=== PATIENT | male | born 1955 | race Caucasian/White ===

== ENCOUNTER 2019-04-17 13:14 | Observation (INO) | payer OTHER ==
[2019-04-17 14:15] LABS: Basophils # (A) 0.1 k/uL (0-0.2); Basophils % (A) 1 %; Eosinophils # (A) 0.2 k/uL (0-0.7); Eosinophils % (A) 3 %; HCT 47.4 % (39.0-53.0); HGB 16.2 gm/dL (13.0-17.5); Lymphocytes # (A) 1.1 k/uL (1.0-4.8); Lymphocytes % (A) 15 %; MCH 31.5 pg (25.0-35.0); MCHC 34.2 g/dL (31.0-37.0); Mean Platelet Volume 7.4; Monocytes # (A) 0.4 k/uL (0-1.0); Monocytes % (A) 6 %; Neutrophils # (A) 5.5 k/uL (1.3-7.7); Neutrophils % (A) 75 %; Platelet Count 248 k/uL (150-450); RBC 5.16 m/uL (4.30-5.90); RDW 13.7 % (11.5-15.5); WBC 7.4 k/uL (3.8-10.6)
[2019-04-17] MEDS: ASPIRIN 81 MG PO STA ×2 (14:18→14:19)
[2019-04-17 14:26] LABS: ALT 25 U/L (21-72); AST 36 U/L (17-59); Albumin 4.3 g/dL (3.5-5.0); Alkaline Phosphatase 51 U/L (38-126); Anion Gap 9 mmol/L; Blood Urea Nitrogen 10 mg/dL (9-20); Calcium 9.4 mg/dL (8.4-10.2); Carbon Dioxide 25 mmol/L (22-30); Chloride 104 mmol/L (98-107); Glucose 95 mg/dL (74-99); Sodium 138 mmol/L (137-145); Total Protein 7.1 g/dL (6.3-8.2)
[2019-04-17 14:32] LABS: INR 0.9 (<1.2); Partial Thromboplastin Time 27.1 sec (22.0-30.0); Prothrombin Time 10.2 sec (9.0-12.0)
[2019-04-17 14:34] LABS: Magnesium 1.9 mg/dL (1.6-2.3); Potassium 4.6 mmol/L (3.5-5.1)
--- NOTE | 2019-04-17 14:40 | ED ---
General Adult HPI - General Chief complaint: Chest Pain Stated complaint: chest pain Time Seen by Provider: 04/17/19 13:20 Source: patient, RN notes reviewed Mode of arrival: wheelchair - History of Present Illness Initial comments: This is a 63-year-old male who presents emergency Department complaining that he started having some chest pressure radiated to his neck felt his heart rate racing so he came to the emergency department. Patient did not note any sweating or shortness of breath but did feel like he was getting a significant headache as well. Patient came to the ER and was worked up to the monitor his heart rate was 140 in triage 120 when he got back to the room and then he converted to a normal sinus rhythm in the 80s. Patient currently denies any symptoms whatsoever. Patient denies any symptoms previously. - Related Data Home Medications Medication Instructions Recorded Confirmed Amoxic-Pot Clav 875-125Mg 1 tab PO Q12HR 04/17/19 04/17/19 [Augmentin 875-125] Aspirin EC [Ecotrin Low Dose] 81 mg PO DAILY 04/17/19 04/17/19 Escitalopram [Lexapro] 10 mg PO DAILY 04/17/19 04/17/19 Escitalopram [Lexapro] 20 mg PO DAILY 04/17/19 04/17/19 Multivitamins, Thera [Multivitamin 1 tab PO DAILY 04/17/19 04/17/19 (formulary)] clonazePAM [KlonoPIN] 1 mg PO QID PRN 04/17/19 04/17/19 Allergies Allergy/AdvReac Type Severity Reaction Status Date / Time haloperidol [From Haldol] Allergy Swelling Verified 04/17/19 14:10 Review of Systems ROS Statement: Those systems with pertinent positive or pertinent negative responses have been documented in the HPI. ROS Other: All systems not noted in ROS Statement are negative. Past Medical History Past Medical History: No Reported History History of Any Multi-Drug Resistant Organisms: None Reported Past Surgical History: Orthopedic Surgery Past Psychological History: Anxiety Smoking Status: Former smoker Past Alcohol Use History: None Reported Past Drug Use History: None Reported General Exam - General Exam Comments Initial Comments: GENERAL: Patient is well-developed and well-nourished. Patient is nontoxic and well- hydrated and is in mild distress. ENT: Neck is soft and supple. No significant lymphadenopathy is noted. Oropharynx is clear. Moist mucous membranes. Neck has full range of motion without eliciting any pain. EYES: The sclera were anicteric and conjunctiva were pink and moist. Extraocular movements were intact and pupils were equal round and reactive to light. Eyelids were unremarkable. PULMONARY: Unlabored respirations. Good breath sounds bilaterally. No audible rales rhonchi or wheezing was noted. CARDIOVASCULAR: There is a regular rate and rhythm without any murmurs gallops or rubs. ABDOMEN: Soft and nontender with normal bowel sounds. SKIN: Skin is clear with no lesions or rashes and otherwise unremarkable. NEUROLOGIC: Patient is alert and oriented x3. Cranial nerves II through XII are grossly intact. Motor and sensory are also intact. Normal speech, volume and content. Symmetrical smile. MUSCULOSKELETAL: Normal extremities with adequate strength and full range of motion. No lower extremity swelling or edema. No calf tenderness. LYMPHATICS: No significant lymphadenopathy is noted PSYCHIATRIC: Normal psychiatric evaluation. Course Vital Signs 04/17/19 13:16 Temperature 98.2 F Pulse Rate 147 H Respiratory 18 Rate Blood Pressure 98/71 O2 Sat by Pulse 99 Oximetry Medical Decision Making - Medical Decision Making EKG shows normal sinus rhythm at 85 bpm SD interval is 195 QRSs 84 QT interval 362 QTC is 4:30. Patient's EKG shows no ST segment elevation or depression or T wave abnormalities are noted. Patient was in the emergency department for a few hours and experienced no increase in heart rate and was unable to determine what rhythm he was in prior to slowing down to the 80s. Patient has had no chest pains since he slowed down. - Lab Data Result diagrams: 04/17/19 13:59 04/17/19 13:59 Lab Results 04/17/19 04/17/19 04/17/19 Range/Units 13:59 13:59 13:59 WBC 7.4 (3.8-10.6) k/uL RBC 5.16 (4.30-5.90) m/uL Hgb 16.2 (13.0-17.5) gm/dL Hct 47.4 (39.0-53.0) % MCV 92.0 (80.0-100.0) fL MCH 31.5 (25.0-35.0) pg MCHC 34.2 (31.0-37.0) g/dL RDW 13.7 (11.5-15.5) % Plt Count 248 (150-450) k/uL Neutrophils % 75 % Lymphocytes % 15 % Monocytes % 6 % Eosinophils % 3 % Basophils % 1 % Neutrophils # 5.5 (1.3-7.7) k/uL Lymphocytes # 1.1 (1.0-4.8) k/uL Monocytes # 0.4 (0-1.0) k/uL Eosinophils # 0.2 (0-0.7) k/uL Basophils # 0.1 (0-0.2) k/uL PT 10.2 (9.0-12.0) sec INR 0.9 (<1.2) APTT 27.1 (22.0-30.0) sec Sodium 138 (137-145) mmol/L Potassium 4.6 (3.5-5.1) mmol/L Chloride 104 (98-107) mmol/L Carbon Dioxide 25 (22-30) mmol/L Anion Gap 9 mmol/L BUN 10 (9-20) mg/dL Creatinine 0.78 (0.66-1.25) mg/dL Est GFR (CKD-EPI)AfAm >90 (>60 ml/min/1.73 sqM) Est GFR (CKD-EPI)NonAf >90 (>60 ml/min/1.73 sqM) Glucose 95 (74-99) mg/dL Calcium 9.4 (8.4-10.2) mg/dL Magnesium 1.9 (1.6-2.3) mg/dL Total Bilirubin 1.0 (0.2-1.3) mg/dL AST 36 (17-59) U/L ALT 25 (21-72) U/L Alkaline Phosphatase 51 (38-126) U/L Troponin I (0.000-0.034) ng/mL Total Protein 7.1 (6.3-8.2) g/dL Albumin 4.3 (3.5-5.0) g/dL 04/17/19 Range/Units 13:59 WBC (3.8-10.6) k/uL RBC (4.30-5.90) m/uL Hgb (13.0-17.5) gm/dL Hct (39.0-53.0) % MCV (80.0-100.0) fL MCH (25.0-35.0) pg MCHC (31.0-37.0) g/dL RDW (11.5-15.5) % Plt Count (150-450) k/uL Neutrophils % % Lymphocytes % % Monocytes % % Eosinophils % % Basophils % % Neutrophils # (1.3-7.7) k/uL Lymphocytes # (1.0-4.8) k/uL Monocytes # (0-1.0) k/uL Eosinophils # (0-0.7) k/uL Basophils # (0-0.2) k/uL PT (9.0-12.0) sec INR (<1.2) APTT (22.0-30.0) sec Sodium (137-145) mmol/L Potassium (3.5-5.1) mmol/L Chloride (98-107) mmol/L Carbon Dioxide (22-30) mmol/L Anion Gap mmol/L BUN (9-20) mg/dL Creatinine (0.66-1.25) mg/dL Est GFR (CKD-EPI)AfAm (>60 ml/min/1.73 sqM) Est GFR (CKD-EPI)NonAf (>60 ml/min/1.73 sqM) Glucose (74-99) mg/dL Calcium (8.4-10.2) mg/dL Magnesium (1.6-2.3) mg/dL Total Bilirubin (0.2-1.3) mg/dL AST (17-59) U/L ALT (21-72) U/L Alkaline Phosphatase (38-126) U/L Troponin I <0.012 (0.000-0.034) ng/mL Total Protein (6.3-8.2) g/dL Albumin (3.5-5.0) g/dL Disposition Clinical Impression: Palpitations, Chest pain Disposition: ADMITTED IP TO THIS [facility] Referrals: Everett Betancur DO [Primary Care Provider] - 1-2 days Time of Disposition: 15:21
--- NOTE | 2019-04-17 14:41 | XR ---
EXAMINATION TYPE: XR chest 2V DATE OF EXAM: 04/17/2019 COMPARISON: NONE HISTORY: Chest pain TECHNIQUE: Frontal and lateral views of the chest are obtained. FINDINGS: There is no focal air space opacity, pleural effusion, or pneumothorax seen. The cardiac silhouette size is mildly enlarged. Minimal lingular atelectasis is seen that is linear. The osseou s structures are intact. IMPRESSION: Mildly enlarged cardiac mediastinal silhouette and minimal lingular atelectasis otherwis e no acute cardiopulmonary process.
[2019-04-17] MEDS ORDERED: NITROGLYCERIN SL TABS 0.4 MG TAB SUBLINGUAL PRN (15:27)
[2019-04-17] MEDS: NITROGLYCERIN OINT 1 INCH/GM PACKET TOPICAL SCH (16:40)
[2019-04-17] MEDS: AMOXIC-POT CLAV 875-125MG 1 EACH TAB PO SCH (20:02)
[2019-04-17] MEDS: clonazePAM 1 MG TAB PO PRN (20:02)
[2019-04-17] MEDS ORDERED: LORATADINE 10 MG TAB PO SCH (21:00)
[2019-04-18] MEDS: NITROGLYCERIN OINT 1 INCH/GM PACKET TOPICAL SCH ×3 (01:35→11:05)
[2019-04-18] MEDS: clonazePAM 1 MG TAB PO PRN ×2 (02:55→09:23)
[2019-04-18 03:48] LABS: Cholesterol 199 mg/dL (<200); HDL Cholesterol 36 mg/dL (40-60); LDL Cholesterol,Calculated 126 mg/dL (0-99); Triglycerides 186 mg/dL (<150)
[2019-04-18 04:04] VITALS: RESP 16
[2019-04-18 07:01] VITALS: BP 115/73; PULSE 52; TEMP 97.7
--- NOTE | 2019-04-18 07:30 | P.CRDCN ---
History of Present Illness Consult date: 04/18/19 Chief complaint: Chest pain History of present illness: This is a 63-year-old gentleman with no significant past medical history of coronary artery disease, diabetes, hypertension, dyslipidemia, presented to the emergency room complaining of chest discomfort. He was in his usual state of health where he was with his fianc yesterday outside home when he started experiencing discomfort, in the mid of the chest, as a sharp discomfort, without any radiation to the arm or neck or shoulders and without any associated symptoms of shortness of breath, sweating, dizziness, heart racing, or syncope. The discomfort lasted for about half an hour. The time he arrived emergency room was chest pain-free and he continues to be chest pain-free throughout his hospitalization. The EKG showed sinus rhythm without any significant ST or T- wave abnormalities. 3 sets of cardiac enzymes were checked and came in to be unremarkable. The chest x-ray did not show any acute abnormalities. The patient is not aware of any prior history of coronary artery disease nor diabetes or hypertension or dyslipidemia. He does not smoke or drink alcohol. And there is no family history of coronary artery disease. He does have his son was does have a pacemaker and also his father. Past Medical History Past Medical History: No Reported History History of Any Multi-Drug Resistant Organisms: None Reported Past Surgical History: Orthopedic Surgery Past Anesthesia/Blood Transfusion Reactions: No Reported Reaction Past Psychological History: Anxiety Smoking Status: Former smoker Past Alcohol Use History: None Reported Past Drug Use History: None Reported Medications and Allergies Home Medications Medication Instructions Recorded Confirmed Type Amoxic-Pot Clav 875-125Mg 1 tab PO Q12HR 04/17/19 04/17/19 History [Augmentin 875-125] Aspirin EC [Ecotrin Low Dose] 81 mg PO DAILY 04/17/19 04/17/19 History Cetirizine HCl [Zyrtec] 10 mg PO HS 04/17/19 04/17/19 History Escitalopram [Lexapro] 10 mg PO DAILY 04/17/19 04/17/19 History Escitalopram [Lexapro] 20 mg PO DAILY 04/17/19 04/17/19 History Multivitamins, Thera [Multivitamin 1 tab PO DAILY 04/17/19 04/17/19 History (formulary)] clonazePAM [KlonoPIN] 1 mg PO QID PRN 04/17/19 04/17/19 History Allergies Allergy/AdvReac Type Severity Reaction Status Date / Time haloperidol [From Haldol] Allergy Swelling Verified 04/17/19 14:10 Physical Exam Vitals: Vital Signs Temp Pulse Pulse Resp BP BP Pulse Ox 04/18/19 06:59 97.7 F 52 L 16 115/73 97 04/18/19 04:00 57 L 16 04/18/19 03:57 97.9 F 55 L 15 118/72 97 04/17/19 23:21 98.5 F 60 15 121/70 97 04/17/19 19:27 98.0 F 70 15 123/77 98 04/17/19 16:00 18 04/17/19 15:53 98.1 F 76 18 115/75 97 04/17/19 15:00 98.2 F 87 18 122/74 99 04/17/19 13:16 98.2 F 147 H 18 98/71 99 Intake and Output 04/17/19 04/18/19 04/18/19 22:59 06:59 14:59 Intake Total 0 Balance 0 Intake: Oral 0 Other: Voiding Method Toilet Toilet # Voids 1 - Constitutional General appearance: no acute distress - Respiratory Respiratory: bilateral: CTA - Cardiovascular Rhythm: regular Heart sounds: normal: S1, S2 Results 04/17/19 13:59 04/17/19 13:59 Cardiac Enzymes 04/17/19 04/17/19 04/17/19 Range/Units 13:59 13:59 19:53 AST 36 (17-59) U/L Troponin I <0.012 0.027 (0.000-0.034) ng/mL 04/18/19 Range/Units 02:45 AST (17-59) U/L Troponin I 0.015 (0.000-0.034) ng/mL Coagulation 04/17/19 Range/Units 13:59 PT 10.2 (9.0-12.0) sec APTT 27.1 (22.0-30.0) sec Lipids 04/18/19 Range/Units 02:45 Triglycerides 186 H (<150) mg/dL Cholesterol 199 (<200) mg/dL HDL Cholesterol 36 L (40-60) mg/dL CBC 04/17/19 Range/Units 13:59 WBC 7.4 (3.8-10.6) k/uL RBC 5.16 (4.30-5.90) m/uL Hgb 16.2 (13.0-17.5) gm/dL Hct 47.4 (39.0-53.0) % Plt Count 248 (150-450) k/uL Comprehensive Metabolic Panel 04/17/19 Range/Units 13:59 Sodium 138 (137-145) mmol/L Potassium 4.6 (3.5-5.1) mmol/L Chloride 104 (98-107) mmol/L Carbon Dioxide 25 (22-30) mmol/L BUN 10 (9-20) mg/dL Creatinine 0.78 (0.66-1.25) mg/dL Glucose 95 (74-99) mg/dL Calcium 9.4 (8.4-10.2) mg/dL AST 36 (17-59) U/L ALT 25 (21-72) U/L Alkaline Phosphatase 51 (38-126) U/L Total Protein 7.1 (6.3-8.2) g/dL Albumin 4.3 (3.5-5.0) g/dL Current Medications Generic Name Dose Route Start Last Admin Trade Name Freq PRN Reason Stop Dose Admin Amoxicillin/Clavulanate Potassium 1 each 04/17/19 21:00 04/17/19 20:02 Augmentin 875-125 PO 1 each Q12HR KAYLA Administration Aspirin 325 mg 04/18/19 09:00 Aspirin PO DAILY [facility] Clonazepam 1 mg 04/17/19 18:09 04/18/19 02:55 Klonopin PO 1 mg QID PRN Administration Anxiety Escitalopram Oxalate 10 mg 04/18/19 09:00 Lexapro PO DAILY KAYLA Escitalopram Oxalate 20 mg 04/18/19 09:00 Lexapro PO DAILY KAYLA Loratadine 10 mg 04/17/19 21:00 04/17/19 20:02 Claritin PO 10 mg HS KAYLA Administration Multivitamins 1 each 04/18/19 09:00 Theragran PO DAILY [facility] Nitroglycerin 1 inch 04/17/19 18:00 04/18/19 06:26 Nitro-Bid Oint TOPICAL Not Given Q6HR [facility] Nitroglycerin 0.4 mg 04/17/19 15:27 Nitrostat SUBLINGUAL Q5M PRN Chest Pain Intake and Output 04/17/19 04/18/19 04/18/19 22:59 06:59 14:59 Intake Total 0 Balance 0 Intake: Oral 0 Other: Voiding Method Toilet Toilet # Voids 1 04/17/19 13:59 04/17/19 13:59 Assessment and Plan Assessment: Assessment #1 when episode of atypical chest discomfort. Currently the patient is chest pain-free Plan #1 acute coronary event was ruled out #2 the patient continues to be chest pain-free #3 I did discuss with the patient the need for stress test and I discussed with him the option between doing a stress test as an inpatient or outpatient. I am getting the patient up and around and if he is chest pain-free he might be able to be discharged home and I will follow-up with the patient as an outpatient. Thank you for allowing us participate in his care
[2019-04-18] MEDS ORDERED: ASPIRIN 325 MG TAB PO SCH (09:00)
[2019-04-18] MEDS ORDERED: ESCITALOPRAM 20 MG TAB PO SCH (09:00)
[2019-04-18] MEDS ORDERED: ESCITALOPRAM 10 MG TAB PO SCH (09:00)
[2019-04-18] MEDS ORDERED: NON-FORMULARY DRUG (Aspirin Ec 81 MG) PO SCH (09:00)
[2019-04-18] MEDS ORDERED: MULTIVITAMINS, THERA 1 EACH TAB PO SCH (09:00)
[2019-04-18] MEDS: AMOXIC-POT CLAV 875-125MG 1 EACH TAB PO SCH (09:19)
--- NOTE | 2019-04-18 09:49 | P.HPIM ---
History of Present Illness H&P Date: 04/18/19 Chief Complaint: Chest Pain This is a 63-year-old gentleman admitted to the ER with midsternal sharp chest pain, palpitations, no radiation, no shortness of breath, no nausea or vomiting, no dizziness, no lightheadedness or focal deficits, no syncope, lasting for nearly an hour in a patient with no prior significant cardiac history, diabetes mellitus, hyperlipidemia. Heart rate on admission 140, slow down to the 80s. Rhythm on admission, unknown. EKG reported normal sinus rhythm. Troponins negative 3. Electrolytes within normal limits. Triglycerides 186, cholesterol 199, LDL 126, HDL 36. Chest x-ray nonacute. Received aspirin .VSS.Chest pain/palpitations has subsided. Admitted to observation with cardiology consulted. Review of Systems ROS Statement: Those systems with pertinent positive or pertinent negative responses have been documented in the HPI. ROS Other: All systems not noted in ROS Statement are negative. Past Medical History Past Medical History: No Reported History History of Any Multi-Drug Resistant Organisms: None Reported Past Surgical History: Orthopedic Surgery Past Anesthesia/Blood Transfusion Reactions: No Reported Reaction Past Psychological History: Anxiety Smoking Status: Former smoker Past Alcohol Use History: None Reported Past Drug Use History: None Reported Medications and Allergies Home Medications Medication Instructions Recorded Confirmed Type Amoxic-Pot Clav 875-125Mg 1 tab PO Q12HR 04/17/19 04/17/19 History [Augmentin 875-125] Aspirin EC [Ecotrin Low Dose] 81 mg PO DAILY 04/17/19 04/17/19 History Cetirizine HCl [Zyrtec] 10 mg PO HS 04/17/19 04/17/19 History Escitalopram [Lexapro] 10 mg PO DAILY 04/17/19 04/17/19 History Escitalopram [Lexapro] 20 mg PO DAILY 04/17/19 04/17/19 History Multivitamins, Thera [Multivitamin 1 tab PO DAILY 04/17/19 04/17/19 History (formulary)] clonazePAM [KlonoPIN] 1 mg PO QID PRN 04/17/19 04/17/19 History Allergies Allergy/AdvReac Type Severity Reaction Status Date / Time haloperidol [From Haldol] Allergy Swelling Verified 04/17/19 14:10 Physical Exam Vitals: Vital Signs Temp Pulse Pulse Resp BP BP Pulse Ox 04/18/19 06:59 97.7 F 52 L 16 115/73 97 04/18/19 04:00 57 L 16 04/18/19 03:57 97.9 F 55 L 15 118/72 97 04/17/19 23:21 98.5 F 60 15 121/70 97 04/17/19 19:27 98.0 F 70 15 123/77 98 04/17/19 16:00 18 04/17/19 15:53 98.1 F 76 18 115/75 97 04/17/19 15:00 98.2 F 87 18 122/74 99 04/17/19 13:16 98.2 F 147 H 18 98/71 99 Intake and Output 04/17/19 04/18/19 04/18/19 22:59 06:59 14:59 Intake Total 0 Balance 0 Intake: Oral 0 Other: Voiding Method Toilet Toilet # Voids 1 PHYSICAL EXAM: VITAL SIGNS: As above GENERAL: Sitting up in bed, no acute distress HEENT: Conjunctivae normal. eyes normal. NECK: No JVD. No thyroid enlargement. No LNs CARDIOVASCULAR: S1, S2 regular.. No murmur RESPIRATION: Breath sounds diminished in the bases. No rhonchi or crackles. No bronchial breathing. ABDOMEN: Soft, nontender . No guarding. no masses palpable.Bowel sounds heard. LEGS: No edema. no swelling PSYCHIATRY: Alert and oriented -3, mood and affect normal. NERVOUS SYSTEM: Cranial N 2-12 grossly normal. Moves all 4 limbs. No focal deficits. Strength and sensation grossly intact.. Skin: no lesions, no rash Joints: No active swelling. No inflammation. Lymphatic system. No LN neck axilla or groin. Results CBC & Chem 7: 04/17/19 13:59 04/17/19 13:59 Labs: Abnormal Lab Results - Last 24 Hours (Table) 04/18/19 Range/Units 02:45 Triglycerides 186 H (<150) mg/dL LDL Cholesterol, Calc 126 H (0-99) mg/dL HDL Cholesterol 36 L (40-60) mg/dL Thrombosis Risk Factor Assmnt - Choose All That Apply Any of the Below Risk Factors Present?: No Each Risk Factor Represents 2 Points: Age 61-74 years Thrombosis Risk Factor Assessment Total Risk Factor Score: 2 Thrombosis Risk Factor Assessment Level: Low Risk Assessment and Plan Assessment: -CP, palpitations -Anxiety -Former nicotine dependence -Hyperlipidemia Plan: Continue on current medication regime ,monitoring and symptomatic treatment. Home meds have been reviewed and resumed. Cardiology consulted, currently discussing stress test. Patient instructed to ambulate in hallway. Further recommendations to follow. The impression and plan of care has been dictated as directed. : I performed a history and examination of this patient, discussed the same with the dictator. I agree with the dictator's note ,documented as a scribe. Any additional findings or plans will be noted. Time taken: 35 minutes
--- NOTE | 2019-04-18 10:02 | P.DS ---
Providers Date of admission: 04/17/19 15:31 Expected date of discharge: 04/18/19 Attending physician: MD Dr Pipe Valdez Consults: 04/17/19 15:28 Consult Physician Urgent Consulting Provider: [facility] Consult Reason/Comments: Chest pain, palpitations Do you want consulting provider notified?: Yes Primary care physician: Everett Betancur [facility] Course: Final Diagnoses: -Atypical CP, palpitations. Acute coronary event ruled out as per cardiology. -Anxiety -Former nicotine dependence -Hyperlipidemia Hospital course:This is a 63-year-old gentleman admitted to the ER with midsternal sharp chest pain, palpitations, no radiation, no shortness of breath, no nausea or vomiting, no dizziness, no lightheadedness or focal deficits, no syncope, lasting for nearly an hour in a patient with no prior significant cardiac history, diabetes mellitus, hyperlipidemia. Heart rate on admission 140, slow down to the 80s. Rhythm on admission, unknown. EKG reported normal sinus rhythm. Troponins negative 3. Electrolytes within normal limits. Triglycerides 186, cholesterol 199, LDL 126, HDL 36. Chest x-ray nonacute. Received aspirin .VSS.Chest pain/palpitations has subsided. Admitted to observation with cardiology consulted. Evaluated by cardiology. Patient ambulated in the hallway, multiple times, tolerating exertion well, no further chest pain, palpitations, lightheadedness dizziness or focal deficits. Cardiology recommending outpatient stress test. Patient has been cleared by cardiology for discharge. Patient is being discharged home in stable condition with guarded prognosis. EXAM: GENERAL: Alert and oriented 3, no acute distress CARDIOVASCULAR: S1, S2 regular.. No murmur RESPIRATION: Breath sounds diminished in the bases. No rhonchi or crackles. No wheezing ABDOMEN: Soft, nontender . No guarding. no masses palpable.Bowel sounds heard. NERVOUS SYSTEM: No focal deficits. The impression and plan of care has been dictated as directed. : I performed a history and examination of this patient, discussed the same with the dictator. I agree with the dictator's note ,documented as a scribe. Any additional findings or plans will be noted. Time taken: 35 minutes Patient Condition at Discharge: Stable Plan - Discharge Summary Discharge Rx Participant: No New Discharge Prescriptions: Continue clonazePAM [KlonoPIN] 1 mg PO QID PRN PRN Reason: Anxiety Multivitamins, Thera [Multivitamin (formulary)] 1 tab PO DAILY Escitalopram [Lexapro] 10 mg PO DAILY Escitalopram [Lexapro] 20 mg PO DAILY Aspirin EC [Ecotrin Low Dose] 81 mg PO DAILY Amoxic-Pot Clav 875-125Mg [Augmentin 875-125] 1 tab PO Q12HR Cetirizine HCl [Zyrtec] 10 mg PO HS Discharge Medication List Amoxic-Pot Clav 875-125Mg [Augmentin 875-125] 1 tab PO Q12HR 04/17/19 [History] Aspirin EC [Ecotrin Low Dose] 81 mg PO DAILY 04/17/19 [History] Cetirizine HCl [Zyrtec] 10 mg PO HS 04/17/19 [History] Escitalopram [Lexapro] 10 mg PO DAILY 04/17/19 [History] Escitalopram [Lexapro] 20 mg PO DAILY 04/17/19 [History] Multivitamins, Thera [Multivitamin (formulary)] 1 tab PO DAILY 04/17/19 [History] clonazePAM [KlonoPIN] 1 mg PO QID PRN 04/17/19 [History] Follow up Appointment(s)/Referral(s): Everett Betancur DO [Primary Care Provider] - 3 Days Activity/Diet/Wound Care/Special Instructions: Confirm cardiology F/U- OP stress DIet: Low cholesterol, Cardiac
== END 2019-04-18 11:40 | disposition home or self-care (01) ==
LOC: EC 13:14 → 1SOBS 15:31
PROVIDERS: ADMIT Family Medicine; ATTEND Family Medicine
DX: R07.89 Other chest pain (principal); R00.2 Palpitations; R51 Headache; F41.9 Anxiety disorder, unspecified; E78.5 Hyperlipidemia, unspecified; Z87.891 Personal history of nicotine dependence; Z79.82 Long term (current) use of aspirin; Z79.899 Other long term (current) drug therapy; Z88.8 Allergy status to other drugs, medicaments and biological substances; Z82.49 Family history of ischemic heart disease and other diseases of the circulatory system
CPT/HCPCS: 99285; 36415; 93005; 80061; 80053; 83735; 84484 ×2; 85025; 85610; 85730; 71046; G0378 ×2

== ENCOUNTER 2022-07-25 19:32 | Emergency (ER) | payer MEDICARE, OTHER ==
--- NOTE | 2022-07-25 20:59 | XR ---
EXAMINATION TYPE: XR chest 2V DATE OF EXAM: 07/25/2022 8:37 PM COMPARISON: THIS EXAM WAS READ DURING PACS DOWNTIME, NO PRIORS AVAILABLE. TECHNIQUE: XR chest 2V Frontal and lateral views of the chest. CLINICAL INDICATION:Male, 66 years old with history of dysrhythmia; FINDINGS: Lungs/Pleura: There is no evidence of pleural effusion, focal consolidation, or pneumothorax. Pulmonary vascularity: Unremarkable. Heart/mediastinum: Cardiomediastinal silhouette is unremarkable. Musculoskeletal: No acute osseous pathology. IMPRESSION: No acute cardiopulmonary disease/process.
--- NOTE | 2022-07-26 00:06 | ED ---
Arrhythmia/Palpitations HPI - General Chief Complaint: Arrhythmia/Palpitations Stated Complaint: A-fib Time Seen by Provider: 07/25/22 23:49 Source: patient, RN notes reviewed Mode of arrival: ambulatory Limitations: no limitations - History of Present Illness Initial Comments: This is a patient with a history of paroxysmal atrial fibrillation. Patient currently only taking a daily aspirin. Patient takes nothing for rate control. Patient states on Thursday he felt the atrial fibrillation "hit him. "Patient states he felt some palpitations and racing heartbeat. He states that since then he's felt a bit weak. Patient denying any chest pain but states that he has occasionally felt some funny palpitations in his chest area. Patient denied any nausea or vomiting. No diaphoresis. No current symptoms. Patient not on anticoagulation. Patient has had a mild headache and some generalized weakness, no fever or chills, no changes in vision or hearing, no sore throat or difficulty with speech, no neck pain, no chest pain or shortness of breath, no abdominal pain, no nausea or vomiting, no changes in urination or bowel movements, no numbness or tingling, no extremity pain, no skin rashes or lesions. Past medical, surgical, social, and family history reviewed. - Related Data Home Medications Medication Instructions Recorded Confirmed Aspirin EC [Ecotrin Low Dose] 81 mg PO DAILY 04/17/19 12/20/19 Cetirizine HCl [Zyrtec] 10 mg PO HS 04/17/19 12/20/19 Escitalopram [Lexapro] 10 mg PO DAILY@1100 04/17/19 12/20/19 Escitalopram [Lexapro] 20 mg PO DAILY@1100 04/17/19 12/20/19 Multivitamins, Thera [Multivitamin 1 tab PO DAILY 04/17/19 12/20/19 (formulary)] clonazePAM [KlonoPIN] 1 mg PO TID 04/17/19 12/20/19 Elderberry Fruit and Flower [Black 1 cap PO DAILY 12/19/19 12/20/19 Elderberry 575 mg Cap] Allergies Allergy/AdvReac Type Severity Reaction Status Date / Time haloperidol [From Haldol] Allergy Swelling Verified 07/25/22 20:11 Review of Systems ROS Statement: Those systems with pertinent positive or pertinent negative responses have been documented in the HPI. ROS Other: All systems not noted in ROS Statement are negative. Past Medical History Past Medical History: Atrial Fibrillation Additional Past Medical History / Comment(s): a fib rvr History of Any Multi-Drug Resistant Organisms: None Reported Past Surgical History: Orthopedic Surgery Additional Past Surgical History / Comment(s): right wrist/forearm tendon repair due to injury Past Anesthesia/Blood Transfusion Reactions: No Reported Reaction Past Psychological History: Anxiety Smoking Status: Never smoker Past Alcohol Use History: Occasional Past Drug Use History: None Reported - Past Family History Mother Additional Family Medical History / Comment(s): polio as child Father Family Medical History: Unable to Obtain Sister(s) Family Medical History: No Reported History Son(s) Family Medical History: AICD/Pacemaker Additional Family Medical History / Comment(s): WPW-pacer Daughter(s) Additional Family Medical History / Comment(s): anxiety General Exam - General Exam Comments Initial Comments: This is an obese 66-year-old male in no distress at the time of seeing him. Does not appear to be ill or toxic. Vital signs reviewed. Patient afebrile. No respiratory distress. Appears to be adequately hydrated. Capillary refill less than 2 seconds. No mottling. Limitations: no limitations General appearance: alert, in no apparent distress Head exam: Present: atraumatic, normocephalic, normal inspection Eye exam: Present: normal appearance, PERRL, EOMI. Absent: scleral icterus, conjunctival injection, periorbital swelling ENT exam: Present: normal exam, normal oropharynx, mucous membranes moist. Absent: mucous membranes dry Neck exam: Present: normal inspection, full ROM. Absent: tenderness, meningismus, lymphadenopathy Respiratory exam: Present: normal lung sounds bilaterally. Absent: respiratory distress, wheezes, rales, rhonchi, stridor, chest wall tenderness, accessory muscle use, decreased breath sounds, prolonged expiratory Cardiovascular Exam: Present: regular rate, normal rhythm, normal heart sounds. Absent: systolic murmur, diastolic murmur, rubs, gallop, clicks GI/Abdominal exam: Present: soft, normal bowel sounds. Absent: distended, tenderness, guarding, rebound, rigid Extremities exam: Present: normal inspection, full ROM, normal capillary refill. Absent: tenderness, pedal edema, joint swelling, calf tenderness Back exam: Present: normal inspection Neurological exam: Present: alert, oriented X3, CN II-XII intact, normal gait. Absent: abnormal gait, motor sensory deficit Psychiatric exam: Present: normal affect, normal mood. Absent: depressed, agita angy, anxious, flat affect, manic, homicidal ideation Skin exam: Present: warm, dry, intact, normal color. 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 Normal axis. Marched R wave in V2. No evidence of acute ST or T-wave changes. Normal intervals. When compared to the previous EKG from December 2019 there is no significant change. Medical Decision Making - Medical Decision Making She'll with a history of atrial fibrillation. Not on anticoagulation. Currently asymptomatic other than feeling some general fatigue. Patient also adds that he has had a mild cough. Patient did show sinus bradycardia here in the ER with no evidence of atrial fibrillation. Patient was hemodynamic are stable otherwise. Patient is symptomatically discharge. No distress. We did discuss all findings and detail. All questions were answered. Patient to follow-up with his personnel clerks supervisor on Thursday. I also told the patient to follow-up with his regular physician. The case was discussed in detail with ED attending physician. Presentation, findings, treatment plan discussed in detail. Patient was told to return to the ER for any signs or symptoms worsen. Told to return immediately if any other problems arise. All questions answered. Treatment plan discussed. Patient in agreement Every effort has been made to ensure accuracy of this dictation. However, due to the limitations of electronic medical records and dictation devices, errors in charting still occur. Supervising physician Dr. Orozco - Lab Data Result diagrams: 07/26/22 03:04 07/26/22 03:04 Lab Results 09/10/22 09/10/22 09/10/22 Range/Units 00:39 00:39 02:27 WBC (3.8-10.6) k/uL RBC (4.30-5.90) m/uL Hgb (13.0-17.5) gm/dL Hct (39.0-53.0) % MCV (80.0-100.0) fL MCH (25.0-35.0) pg MCHC (31.0-37.0) g/dL RDW (11.5-15.5) % Plt Count (150-450) k/uL MPV Neutrophils % % Lymphocytes % % Monocytes % % Eosinophils % % Basophils % % Neutrophils # (1.3-7.7) k/uL Lymphocytes # (1.0-4.8) k/uL Monocytes # (0-1.0) k/uL Eosinophils # (0-0.7) k/uL Basophils # (0-0.2) k/uL Sodium (137-145) mmol/L Potassium (3.5-5.1) mmol/L Chloride (98-107) mmol/L Carbon Dioxide (22-30) mmol/L Anion Gap mmol/L BUN (9-20) mg/dL Creatinine (0.66-1.25) mg/dL Est GFR (CKD-EPI)AfAm (>60 ml/min/1.73 sqM) Est GFR (CKD-EPI)NonAf (>60 ml/min/1.73 sqM) Glucose (74-99) mg/dL Calcium (8.4-10.2) mg/dL Magnesium (1.6-2.3) mg/dL Total Bilirubin (0.2-1.3) mg/dL AST (17-59) U/L ALT (4-49) U/L Alkaline Phosphatase (38-126) U/L Troponin I (0.000-0.034) ng/mL Total Protein (6.3-8.2) g/dL Albumin (3.5-5.0) g/dL TSH 0.767 (0.465-4.680) mIU/L Urine Color Yellow Urine Appearance Clear (Clear) Urine pH 5.5 (5.0-8.0) Ur Specific Schurz 1.012 (1.001-1.035) Urine Protein Negative (Negative) Urine Glucose (UA) Negative (Negative) Urine Ketones 1+ H (Negative) Urine Blood Trace H (Negative) Urine Nitrite Negative (Negative) Urine Bilirubin Negative (Negative) Urine Urobilinogen <2.0 (<2.0) mg/dL Ur Leukocyte Esterase Negative (Negative) Urine RBC 1 (0-5) /hpf Urine WBC 1 (0-5) /hpf Urine Bacteria Rare H (None) /hpf Hyaline Casts 1 (0-2) /lpf Urine Mucus Rare H (None) /hpf Coronavirus (PCR) Not Detected (Not Detectd) 07/26/22 07/26/22 07/26/22 Range/Units 03:04 03:04 03:04 WBC 8.7 (3.8-10.6) k/uL RBC 4.61 (4.30-5.90) m/uL Hgb 15.6 (13.0-17.5) gm/dL Hct 44.6 (39.0-53.0) % MCV 96.7 (80.0-100.0) fL MCH 33.8 (25.0-35.0) pg MCHC 35.0 (31.0-37.0) g/dL RDW 12.7 (11.5-15.5) % Plt Count 244 (150-450) k/uL MPV 8.4 Neutrophils % 63 % Lymphocytes % 25 % Monocytes % 6 % Eosinophils % 4 % Basophils % 1 % Neutrophils # 5.5 (1.3-7.7) k/uL Lymphocytes # 2.2 (1.0-4.8) k/uL Monocytes # 0.5 (0-1.0) k/uL Eosinophils # 0.3 (0-0.7) k/uL Basophils # 0.1 (0-0.2) k/uL Sodium 135 L (137-145) mmol/L Potassium 5.2 H (3.5-5.1) mmol/L Chloride 101 (98-107) mmol/L Carbon Dioxide 22 (22-30) mmol/L Anion Gap 12 mmol/L BUN 13 (9-20) mg/dL Creatinine 0.73 (0.66-1.25) mg/dL Est GFR (CKD-EPI)AfAm >90 (>60 ml/min/1.73 sqM) Est GFR (CKD-EPI)NonAf >90 (>60 ml/min/1.73 sqM) Glucose 112 H (74-99) mg/dL Calcium 8.9 (8.4-10.2) mg/dL Magnesium 1.9 (1.6-2.3) mg/dL Total Bilirubin 1.5 H (0.2-1.3) mg/dL AST 57 (17-59) U/L ALT 22 (4-49) U/L Alkaline Phosphatase 45 (38-126) U/L Troponin I 0.014 (0.000-0.034) ng/mL Total Protein 7.0 (6.3-8.2) g/dL Albumin 4.4 (3.5-5.0) g/dL TSH (0.465-4.680) mIU/L Urine Color Urine Appearance (Clear) Urine pH (5.0-8.0) Ur Specific [place]z (1.001-1.035) Urine Protein (Negative) Urine Glucose (UA) (Negative) Urine Ketones (Negative) Urine Blood (Negative) Urine Nitrite (Negative) Urine Bilirubin (Negative) Urine Urobilinogen (<2.0) mg/dL Ur Leukocyte Esterase (Negative) Urine RBC (0-5) /hpf Urine WBC (0-5) /hpf Urine Bacteria (None) /hpf Hyaline Casts (0-2) /lpf Urine Mucus (None) /hpf Coronavirus (PCR) (Not Detectd) - Radiology Data Radiology results: report reviewed, image reviewed Disposition Clinical Impression: Palpitations, Fatigue, History of atrial fibrillation Narrative: Possible accidental atrial fibrillation. No evidence here in the ER Disposition: HOME SELF-CARE Condition: Good Instructions (If sedation given, give patient instructions): A-fib (Atrial Fibrillation) (ED), Heart Palpitations (ED) Additional Instructions: Call Thursday to set up a follow-up appointment with your personnel clerks supervisor and her primary care physician. Continue aspirin as directed by your regular doctor. Follow-up with your regular physician as directed. Return to the ER immediately if any symptoms worsen, new symptoms arise, or any other problems develop. Is patient prescribed a controlled substance at d/c from ED?: No Referrals: Everett Betancur DO [Primary Care Provider] - 1-2 days Time of Disposition: 04:05
[2022-07-26 03:17] LABS: Basophils # (A) 0.1 k/uL (0-0.2); Basophils % (A) 1 %; Eosinophils # (A) 0.3 k/uL (0-0.7); Eosinophils % (A) 4 %; HCT 44.6 % (39.0-53.0); HGB 15.6 gm/dL (13.0-17.5); Lymphocytes # (A) 2.2 k/uL (1.0-4.8); Lymphocytes % (A) 25 %; MCH 33.8 pg (25.0-35.0); MCV 96.7 fL (80.0-100.0); Mean Platelet Volume 8.4; Monocytes # (A) 0.5 k/uL (0-1.0); Monocytes % (A) 6 %; Neutrophils # (A) 5.5 k/uL (1.3-7.7); Neutrophils % (A) 63 %; Platelet Count 244 k/uL (150-450); RBC 4.61 m/uL (4.30-5.90); RDW 12.7 % (11.5-15.5); WBC 8.7 k/uL (3.8-10.6)
[2022-07-26 03:24] LABS: Appearance,Urine Clear (Clear); Bacteria,Urine Rare /hpf; Bilirubin,Urine Negative (Negative); Blood,Urine Trace (Negative); Color,Urine Yellow; Glucose,Urine (UA) Negative (Negative); Hyaline Casts,Urine 1 /lpf (0-2); Ketones,Urine 1+ (Negative); Leukocyte Esterase,Urine Negative (Negative); Mucus,Urine Rare /hpf; Nitrite,Urine Negative (Negative); PH, Urine 5.5 (5.0-8.0); Protein,Urine Negative (Negative); RBC,Urine 1 /hpf (0-5); Specific Gravity,Urine 1.012 (1.001-1.035); Urobilinogen,Urine <2.0 mg/dL (<2.0); WBC,Urine 1 /hpf (0-5)
[2022-07-26 03:30] LABS: ALT 22 U/L (4-49); AST 57 U/L (17-59); African American GFR (CKD) >90 (>60 ml/min/1.73 sqM); Albumin 4.4 g/dL (3.5-5.0); Alkaline Phosphatase 45 U/L (38-126); Blood Urea Nitrogen 13 mg/dL (9-20); Calcium 8.9 mg/dL (8.4-10.2); Carbon Dioxide 22 mmol/L (22-30); Glucose 112 mg/dL (74-99); Magnesium 1.9 mg/dL (1.6-2.3); Non-African American GFR(CKD) >90 (>60 ml/min/1.73 sqM); Total Bilirubin 1.5 mg/dL (0.2-1.3)
[2022-07-26 03:37] LABS: Anion Gap 12 mmol/L; Chloride 101 mmol/L (98-107); Sodium 135 mmol/L (137-145)
[2022-07-26 04:00] LABS: Potassium 5.2 mmol/L (3.5-5.1)
[2022-07-26 04:16] VITALS: BP 127/63; PULSE 54; RESP 18; TEMP 96.9
== END 2022-07-26 04:19 | disposition home or self-care (01) ==
LOC: EC 19:32
DX: R00.2 Palpitations (principal); R53.83 Other fatigue; I48.91 Unspecified atrial fibrillation; Z20.822 Contact with and (suspected) exposure to COVID-19; Z79.82 Long term (current) use of aspirin; E66.9 Obesity, unspecified; Z68.33 Body mass index [BMI] 33.0-33.9, adult; Z88.8 Allergy status to other drugs, medicaments and biological substances
CPT/HCPCS: 36415; 71046; 80053; 81001; 83735; 84443; 84484; 85025; 87635; 93005; 99285

== ENCOUNTER 2022-09-30 18:37 | Inpatient (IN) | payer MEDICARE, OTHER ==
[2022-09-30] MEDS ORDERED: SODIUM CHLORIDE 0.9% 500 ML 500 ML IV STA (18:59)
[2022-09-30] MEDS ORDERED: DILTIAZEM 125 MG in SODIUM CHLORIDE 0.9% 100 ML IV SCH (19:00)
[2022-09-30] MEDS ORDERED: DILTIAZEM DRIP BOLUS FROM BAG 1 MG SOLN IV ONE (19:01)
--- NOTE | 2022-09-30 19:06 | ED ---
General Adult HPI - General Source: patient, RN notes reviewed, old records reviewed Mode of arrival: ambulatory Limitations: no limitations <Marvel Antony - Last Filed: 09/30/22 21:28> <Marvel Orozco - Last Filed: 09/30/22 23:20> - General Chief complaint: Arrhythmia/Palpitations Stated complaint: AFib Time Seen by Provider: 09/30/22 18:45 - History of Present Illness Initial comments: This a 66-year-old male who presents emergency Department complaining that he is having palpitations. Patient states had this off and on in the past but they haven't been able to figure it out. Patient states he was told they think he has atrial fibrillation but did not yet been able to catch it. 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 Patient denies any shortness of breath or difficulty breathing. Patient denies any lightheadedness or dizziness. Patient denies any back pain. Patient denies any abdominal pain patient denies nausea vomiting diarrhea. (Marvel Antony) - Related Data Home Medications Medication Instructions Recorded Confirmed Cetirizine HCl [Zyrtec] 10 mg PO DAILY 04/17/19 09/30/22 Escitalopram [Lexapro] 10 mg PO DAILY@1200 04/17/19 09/30/22 Escitalopram [Lexapro] 20 mg PO DAILY@1200 04/17/19 09/30/22 Multivitamins, Thera [Multivitamin 1 tab PO DAILY 04/17/19 09/30/22 (formulary)] clonazePAM [KlonoPIN] 1 mg PO TID 04/17/19 09/30/22 Cholecalciferol [Vitamin D3 (25 50 mcg PO DAILY 09/30/22 09/30/22 Mcg = 1000 Iu)] Magnesium 200 mg PO DAILY 09/30/22 09/30/22 Prevagen 1 cap PO DAILY 09/30/22 09/30/22 Vitamin B Complex 1 cap PO DAILY 09/30/22 09/30/22 clonazePAM [KlonoPIN] 1 mg PO DAILY PRN 09/30/22 09/30/22 Allergies Allergy/AdvReac Type Severity Reaction Status Date / Time haloperidol [From Haldol] Allergy Swelling Verified 09/30/22 20:51 rosuvastatin AdvReac Body Verified 09/30/22 20:58 Aches/ Pain/ Weakness Review of Systems ROS Other: All systems not noted in ROS Statement are negative. <Marvel Antony - Last Filed: 09/30/22 21:28> ROS Other: All systems not noted in ROS Statement are negative. <Marvel Orozco - Last Filed: 09/30/22 23:20> ROS Statement: Those systems with pertinent positive or pertinent negative responses have been documented in the HPI. Past Medical History Past Medical History: Atrial Fibrillation Additional Past Medical History / Comment(s): a fib rvr History of Any Multi-Drug Resistant Organisms: None Reported Past Surgical History: Orthopedic Surgery Additional Past Surgical History / Comment(s): right wrist/forearm tendon repair due to injury Past Anesthesia/Blood Transfusion Reactions: No Reported Reaction Past Psychological History: Anxiety Smoking Status: Never smoker Past Alcohol Use History: Occasional Past Drug Use History: None Reported - Past Family History Mother Additional Family Medical History / Comment(s): polio as child Father Family Medical History: Unable to Obtain Sister(s) Family Medical History: No Reported History Son(s) Family Medical History: AICD/Pacemaker Additional Family Medical History / Comment(s): WPW-pacer Daughter(s) Additional Family Medical History / Comment(s): anxiety <Marvel Antony - Last Filed: 09/30/22 21:28> General Exam Limitations: no limitations <Marvel Antony - Last Filed: 09/30/22 21:28> - General Exam Comments Initial Comments: GENERAL: Patient is well-developed and well-nourished. Patient is nontoxic and well- hydrated and is in mild distress. ENT: Neck is soft and supple. No significant lymphadenopathy is noted. Oropharynx is clear. Moist mucous membranes. Neck has full range of motion without eliciting any pain. EYES: The sclera were anicteric and conjunctiva were pink and moist. Extraocular movements were intact and pupils were equal round and reactive to light. Eyelids were unremarkable. PULMONARY: Unlabored respirations. Good breath sounds bilaterally. No audible rales rhonchi or wheezing was noted. CARDIOVASCULAR: Patient is tachycardic at 130 beats a minute ABDOMEN: Soft and nontender with normal bowel sounds. SKIN: Skin is clear with no lesions or rashes and otherwise unremarkable. NEUROLOGIC: Patient is alert and oriented x3. Cranial nerves II through XII are grossly intact. Motor and sensory are also intact. Normal speech, volume and content. Symmetrical smile. MUSCULOSKELETAL: Normal extremities with adequate strength and full range of motion. No lower extremity swelling or edema. No calf tenderness. LYMPHATICS: No significant lymphadenopathy is noted PSYCHIATRIC: Normal psychiatric evaluation. (Marvel Antony) Course Vital Signs 09/30/22 18:38 Temperature 98.3 F Pulse Rate 163 H Respiratory 20 Rate Blood Pressure 113/76 O2 Sat by Pulse 100 Oximetry Medical Decision Making - Lab Data Result diagrams: 09/30/22 19:20 09/30/22 19:20 <Marvel Antony - Last Filed: 09/30/22 21:28> - Lab Data Result diagrams: 09/30/22 19:20 09/30/22 19:20 - EKG Data -: EKG Interpreted by Me (EKG she is sinus 6 CPR 205 QRS 92 QTC 413) <Marvel Orozco B - Last Filed: 09/30/22 23:20> - Medical Decision Making EKG was interpreted by myself EKG shows atrial flutter at 126 bpm WV interval 172 QRS is under 23 QT interval 33 QTC is 377 per patient's EKG shows no ST segment elevation or depression. I interpreted the chest x-ray. Chest x-ray shows no acute abnormality. Started the patient on a Cardizem drip after I gave the patient 5 mg Cardizem bolus. I also started patient on heparin. I spoke with Dr. Betancur he agreed to admit the patient admitted the patient wrote admitting orders. (Marvel Antony) - Lab Data Lab Results 09/30/22 09/30/22 09/30/22 Range/Units 19:20 19:20 19:20 WBC 8.1 (3.8-10.6) k/uL RBC 4.80 (4.30-5.90) m/uL Hgb 16.2 (13.0-17.5) gm/dL Hct 44.1 (39.0-53.0) % MCV 92.1 (80.0-100.0) fL MCH 33.7 (25.0-35.0) pg MCHC 36.6 (31.0-37.0) g/dL RDW 12.2 (11.5-15.5) % Plt Count 216 (150-450) k/uL MPV 8.3 Neutrophils % 68 % Lymphocytes % 21 % Monocytes % 5 % Eosinophils % 3 % Basophils % 1 % Neutrophils # 5.5 (1.3-7.7) k/uL Lymphocytes # 1.7 (1.0-4.8) k/uL Monocytes # 0.4 (0-1.0) k/uL Eosinophils # 0.2 (0-0.7) k/uL Basophils # 0.1 (0-0.2) k/uL PT 11.4 (9.0-12.0) sec INR 1.1 (<1.2) APTT 27.2 (22.0-30.0) sec Sodium 138 (137-145) mmol/L Potassium 3.8 (3.5-5.1) mmol/L Chloride 106 (98-107) mmol/L Carbon Dioxide 25 (22-30) mmol/L Anion Gap 7 mmol/L BUN 10 (9-20) mg/dL Creatinine 0.72 (0.66-1.25) mg/dL Est GFR (CKD-EPI)AfAm >90 (>60 ml/min/1.73 sqM) Est GFR (CKD-EPI)NonAf >90 (>60 ml/min/1.73 sqM) Glucose 90 (74-99) mg/dL Calcium 9.0 (8.4-10.2) mg/dL Magnesium 1.9 (1.6-2.3) mg/dL Total Bilirubin 1.0 (0.2-1.3) mg/dL AST 27 (17-59) U/L ALT 22 (4-49) U/L Alkaline Phosphatase 70 (38-126) U/L Troponin I (0.000-0.034) ng/mL Total Protein 6.9 (6.3-8.2) g/dL Albumin 4.4 (3.5-5.0) g/dL TSH 1.550 (0.465-4.680) mIU/L 09/30/22 Range/Units 19:20 WBC (3.8-10.6) k/uL RBC (4.30-5.90) m/uL Hgb (13.0-17.5) gm/dL Hct (39.0-53.0) % MCV (80.0-100.0) fL MCH (25.0-35.0) pg MCHC (31.0-37.0) g/dL RDW (11.5-15.5) % Plt Count (150-450) k/uL MPV Neutrophils % % Lymphocytes % % Monocytes % % Eosinophils % % Basophils % % Neutrophils # (1.3-7.7) k/uL Lymphocytes # (1.0-4.8) k/uL Monocytes # (0-1.0) k/uL Eosinophils # (0-0.7) k/uL Basophils # (0-0.2) k/uL PT (9.0-12.0) sec INR (<1.2) APTT (22.0-30.0) sec Sodium (137-145) mmol/L Potassium (3.5-5.1) mmol/L Chloride (98-107) mmol/L Carbon Dioxide (22-30) mmol/L Anion Gap mmol/L BUN (9-20) mg/dL Creatinine (0.66-1.25) mg/dL Est GFR (CKD-EPI)AfAm (>60 ml/min/1.73 sqM) Est GFR (CKD-EPI)NonAf (>60 ml/min/1.73 sqM) Glucose (74-99) mg/dL Calcium (8.4-10.2) mg/dL Magnesium (1.6-2.3) mg/dL Total Bilirubin (0.2-1.3) mg/dL AST (17-59) U/L ALT (4-49) U/L Alkaline Phosphatase (38-126) U/L Troponin I <0.012 (0.000-0.034) ng/mL Total Protein (6.3-8.2) g/dL Albumin (3.5-5.0) g/dL TSH (0.465-4.680) mIU/L Critical Care Time Critical Care Time: Yes Total Critical Care Time: 35 <Marvel Antony - Last Filed: 09/30/22 21:28> Disposition Time of Disposition: 21:28 <Marvel Antony Last Filed: 09/30/22 21:28> <Marvel Orozco - Last Filed: 09/30/22 23:20> Clinical Impression: Atrial flutter with rapid ventricular response Disposition: ADMITTED IP TO THIS HOSP
[2022-09-30 19:47] LABS: Basophils # (A) 0.1 k/uL (0-0.2); Basophils % (A) 1 %; Eosinophils # (A) 0.2 k/uL (0-0.7); Eosinophils % (A) 3 %; HCT 44.1 % (39.0-53.0); HGB 16.2 gm/dL (13.0-17.5); Lymphocytes # (A) 1.7 k/uL (1.0-4.8); Lymphocytes % (A) 21 %; MCH 33.7 pg (25.0-35.0); MCHC 36.6 g/dL (31.0-37.0); MCV 92.1 fL (80.0-100.0); Mean Platelet Volume 8.3; Monocytes # (A) 0.4 k/uL (0-1.0); Monocytes % (A) 5 %; Neutrophils # (A) 5.5 k/uL (1.3-7.7); Neutrophils % (A) 68 %; Platelet Count 216 k/uL (150-450); RDW 12.2 % (11.5-15.5); WBC 8.1 k/uL (3.8-10.6)
[2022-09-30 20:16] LABS: ALT 22 U/L (4-49); AST 27 U/L (17-59); African American GFR (CKD) >90 (>60 ml/min/1.73 sqM); Albumin 4.4 g/dL (3.5-5.0); Alkaline Phosphatase 70 U/L (38-126); Anion Gap 7 mmol/L; Blood Urea Nitrogen 10 mg/dL (9-20); Carbon Dioxide 25 mmol/L (22-30); Chloride 106 mmol/L (98-107); Glucose 90 mg/dL (74-99); Magnesium 1.9 mg/dL (1.6-2.3); Non-African American GFR(CKD) >90 (>60 ml/min/1.73 sqM); Potassium 3.8 mmol/L (3.5-5.1); Sodium 138 mmol/L (137-145); Total Protein 6.9 g/dL (6.3-8.2)
[2022-09-30 20:39] LABS: INR 1.1 (<1.2); Partial Thromboplastin Time 27.2 sec (22.0-30.0); Prothrombin Time 11.4 sec (9.0-12.0)
[2022-09-30] MEDS ORDERED: HEPARIN SODIUM 1,000 UN/ML (10ML VL) IV ONE (21:29)
[2022-09-30] MEDS ORDERED: NITROGLYCERIN SL TABS 0.4 MG TAB SUBLINGUAL PRN (21:29)
[2022-09-30] MEDS ORDERED: HEPARIN SOD,PORK IN 0.45% NACL 25,000 UNIT in 0.45% NACL 1 250ML.BAG IV SCH (21:30)
--- NOTE | 2022-09-30 21:47 | XR ---
EXAMINATION TYPE: XR chest 2V DATE OF EXAM: 09/30/2022 9:15 PM COMPARISON: Chest radiographs from 07/25/2022 TECHNIQUE: XR chest 2V Frontal and lateral views of the chest. CLINICAL INDICATION:Male, 66 years old with history of dysrhythmia; FINDINGS: Lungs/Pleura: There is no evidence of pleural effusion, focal consolidation, or pneumothorax. Pulmonary vascularity: Unremarkable. Heart/mediastinum: Cardiomediastinal silhouette is enlarged and stable. Musculoskeletal: No acute osseous pathology. IMPRESSION: No acute cardiopulmonary disease/process.
[2022-10-01 00:39] LABS: Amphetamine Screen,Urine Not Detected (NotDetected); Barbiturate Screen,Urine Not Detected (NotDetected); Benzodiazepines Screen,Urine Detected (NotDetected); Cocaine Screen,Urine Not Detected (NotDetected); Methadone Screen, Urine Not Detected (NotDetected); Opiate Screen,Urine Not Detected (NotDetected); Oxycodone Screen, Urine Not Detected (NotDetected); Phencyclidine Screen,Urine Not Detected (NotDetected); Tricyclic Antidepressant,Urine Not Detected (NotDetected); Urn Cannabinoid Scrn Not Detected (NotDetected)
[2022-10-01 01:43] VITALS: RESP 17
[2022-10-01 07:59] VITALS: TEMP 96.9
[2022-10-01] MEDS ORDERED: ASPIRIN 325 MG TAB PO SCH (09:00)
[2022-10-01] MEDS ORDERED: VERAPAMIL 40 MG TAB PO SCH (09:00)
[2022-10-01] MEDS ORDERED: APIXABAN 5 MG TAB PO SCH (09:15)
[2022-10-01 09:37] LABS: Chol/HDL Ratio 4.63 Ratio; LDL Cholesterol,Calculated 126.2 mg/dL (0.0-131.0)
--- NOTE | 2022-10-01 09:55 | P.CRDCN ---
History of Present Illness Consult date: 10/01/22 History of present illness: HISTORY OF PRESENT ILLNESS: This is a 66-year-old male with a past medical history significant for hyperlipidemia with intolerance to statins and recurrent palpitations. Patient follows in the office with Dr. Denton. We have been asked to see the patient in consultation for aflutter with RVR. Patient examined at the bedside. patient presented to the hospital with a chief complaint of palpitations. patient has a history of recurrent palpitations and was thought to have atrial for relation however this has never been able to be documented. Discussion was held on an outpatient basis for possible loop recorder insertion but this has not yet happened. EKG was obtained revealing atrial tachycardia versus atrial flutter. The patient converted to sinus mechanism on his own. This morning he is maintaining sinus mechanism. he is bradycardic at times with a heart rate in the 50s. He denies chest pain or pressure. He denies shortness of breath. Vital signs are stable. * EKG reveals atrial tachycardia versus atypical atrial flutter * Chest xray negative for acute process * Laboratory data: to WBC 8.1. Hemoglobin 16.2. Platelet count 216. Sodium 138. Potassium 3.8. BUN 10. Creatinine 0.72.troponin negative 3. TSH 1.550. * Current home cardiac medications include none * Most recent echocardiogram obtained in 2019 revealed normal ejection fraction, mild LVH, mild TR, mild MR * Cardiac catheterization history: patient denies REVIEW OF SYSTEMS: At the time of my exam: CONSTITUTIONAL: Denies fever or chills. HEENT: Denies blurred vision, vision changes, or eye pain. Denies hemoptysis CARDIOVASCULAR: Denies chest pain. Denies orthopnea. Denies PND. Denies palpitations RESPIRATORY: Denies shortness of breath. GASTROINTESTINAL: Denies abdominal pain. Denies nausea or vomiting. HEMATOLOGIC: Denies bleeding disorders. GENITOURINARY: Denies any blood in urine. SKIN: Denies pruitis. Denies rash. PHYSICAL EXAM: VITAL SIGNS: Reviewed. GENERAL: Well-developed in no acute distress. HEENT: Head is normocephalic. Pupils are equal, round. Sclerae anicteric. Mucous membranes of the mouth are moist. Neck supple. No JVD or thyromegaly LUNGS: Respirations even and unlabored. Lungs essentially clear to auscultation bilaterally. HEART: Regular rate and rhythm. S1 and S2 heard. ABDOMEN: Soft. Nondistended. Nontender. EXTREMITIES: Normal range of motion. No clubbing or cyanosis. Peripheral pulses intact. No lower extremity edema NEUROLOGIC: Awake and alert. Oriented x 3. ASSESSMENT: Recurrent palpitations New-onset atrial tachycardia versus atypical atrial flutter Sinus bradycardia Hyperlipidemia, intolerant to statin therapy Anxiety PLAN: Obtain 2D echo to assess cardiac structure and function Per Dr. Okeefe, begin Eliquis 5mg BID. Case management consulted for insurance coverage. No rate controlling medications at this time as patient is bradycardic when he is in sinus mechanism Patient may be discharged home today and follow up outpatient with Dr. Denton Nurse practitioner note has been reviewed by physician. Signing provider agrees with the documented findings, assessment, and plan of care. Past Medical History Past Medical History: Atrial Fibrillation, Hyperlipidemia Additional Past Medical History / Comment(s): a fib rvr History of Any Multi-Drug Resistant Organisms: None Reported Past Surgical History: Orthopedic Surgery Additional Past Surgical History / Comment(s): right wrist/forearm tendon repair due to injury Past Anesthesia/Blood Transfusion Reactions: No Reported Reaction Past Psychological History: Anxiety Smoking Status: Never smoker Past Alcohol Use History: Occasional Past Drug Use History: None Reported - Past Family History Mother Additional Family Medical History / Comment(s): polio as child Father Family Medical History: Unable to Obtain Sister(s) Family Medical History: No Reported History Son(s) Family Medical History: AICD/Pacemaker Additional Family Medical History / Comment(s): WPW-pacer Daughter(s) Additional Family Medical History / Comment(s): anxiety Medications and Allergies Home Medications Medication Instructions Recorded Confirmed Type Cetirizine HCl [Zyrtec] 10 mg PO DAILY 04/17/19 09/30/22 History Escitalopram [Lexapro] 10 mg PO DAILY@1200 04/17/19 09/30/22 History Escitalopram [Lexapro] 20 mg PO DAILY@1200 04/17/19 09/30/22 History Multivitamins, Thera [Multivitamin 1 tab PO DAILY 04/17/19 09/30/22 History (formulary)] clonazePAM [KlonoPIN] 1 mg PO TID 04/17/19 09/30/22 History Cholecalciferol [Vitamin D3 (25 50 mcg PO DAILY 09/30/22 09/30/22 History Mcg = 1000 Iu)] Magnesium 200 mg PO DAILY 09/30/22 09/30/22 History Prevagen 1 cap PO DAILY 09/30/22 09/30/22 History Vitamin B Complex 1 cap PO DAILY 09/30/22 09/30/22 History clonazePAM [KlonoPIN] 1 mg PO DAILY PRN 09/30/22 09/30/22 History Apixaban [Eliquis] 5 mg PO BID #60 tab 10/01/22 Rx Allergies Allergy/AdvReac Type Severity Reaction Status Date / Time haloperidol [From Haldol] Allergy Swelling Verified 09/30/22 20:51 rosuvastatin AdvReac Body Verified 09/30/22 20:58 Aches/ Pain/ Weakness Physical Exam Vitals: Vital Signs Temp Pulse Pulse Resp BP BP Pulse Ox 10/01/22 07:58 96.9 F L 55 L 17 116/66 95 10/01/22 03:57 97.6 F 47 L 17 102/60 97 10/01/22 01:44 17 10/01/22 00:00 98.7 F 62 17 118/61 94 L 09/30/22 23:38 61 15 146/82 98 09/30/22 18:38 98.3 F 163 H 20 113/76 100 Intake and Output 09/30/22 10/01/22 10/01/22 22:59 06:59 14:59 Intake Total 77 Output Total 200 Balance -123 Intake: Intake, IV Titration 77 Amount Diltiazem 125 mg In 20 Sodium Chloride 0.9% 100 ml @ 5 MG/HR 5 mls/hr IV .Q24H KAYLA Rx#:[id number] Heparin Sod,Pork in 0.45% 57 NaCl 25,000 unit In 0.45 % NaCl 1 250ml.bag @ 9. 3814 UNITS/KG/HR 10 mls/ hr IV .Q24H KAYLA Rx#: [id number] Output: Urine 200 Other: Weight 106.594 kg 108.2 kg Results 09/30/22 19:20 09/30/22 19:20 Cardiac Enzymes 09/30/22 09/30/22 09/30/22 Range/Units 19:20 19:20 21:51 AST 27 (17-59) U/L Troponin I <0.012 <0.012 (0.000-0.034) ng/mL 10/01/22 Range/Units 00:17 AST (17-59) U/L Troponin I <0.012 (0.000-0.034) ng/mL Coagulation 09/30/22 10/01/22 Range/Units 19:20 02:39 PT 11.4 (9.0-12.0) sec APTT 27.2 32.0 H (22.0-30.0) sec Lipids 10/01/22 Range/Units 02:39 Triglycerides 102.00 (0.00-149.00) mg/dL Cholesterol 187.00 (0.00-200.00) mg/dL HDL Cholesterol 40.40 (40.00-60.00) mg/dL Cholesterol/HDL Ratio 4.63 Ratio CBC 09/30/22 Range/Units 19:20 WBC 8.1 (3.8-10.6) k/uL RBC 4.80 (4.30-5.90) m/uL Hgb 16.2 (13.0-17.5) gm/dL Hct 44.1 (39.0-53.0) % Plt Count 216 (150-450) k/uL Comprehensive Metabolic Panel 09/30/22 Range/Units 19:20 Sodium 138 (137-145) mmol/L Potassium 3.8 (3.5-5.1) mmol/L Chloride 106 (98-107) mmol/L Carbon Dioxide 25 (22-30) mmol/L BUN 10 (9-20) mg/dL Creatinine 0.72 (0.66-1.25) mg/dL Glucose 90 (74-99) mg/dL Calcium 9.0 (8.4-10.2) mg/dL AST 27 (17-59) U/L ALT 22 (4-49) U/L Alkaline Phosphatase 70 (38-126) U/L Total Protein 6.9 (6.3-8.2) g/dL Albumin 4.4 (3.5-5.0) g/dL Current Medications Generic Name Dose Route Start Last Admin Trade Name Freq PRN Reason Stop Dose Admin Apixaban 5 mg 10/01/22 09:15 10/01/22 09:42 Apixaban 5 Mg Tab PO 5 mg BID KAYLA Administration Protocol Nitroglycerin 0.4 mg 09/30/22 21:29 Nitroglycerin Sl Tabs 0.4 Mg Tab SUBLINGUAL Q5M PRN Chest Pain Intake and Output 09/30/22 10/01/22 10/01/22 22:59 06:59 14:59 Intake Total 77 Output Total 200 Balance -123 Intake: Intake, IV Titration 77 Amount Diltiazem 125 mg In 20 Sodium Chloride 0.9% 100 ml @ 5 MG/HR 5 mls/hr IV .Q24H KAYLA Rx#:[id number] Heparin Sod,Pork in 0.45% 57 NaCl 25,000 unit In 0.45 % NaCl 1 250ml.bag @ 9. 3814 UNITS/KG/HR 10 mls/ hr IV .Q24H KAYLA Rx#: [id number] Output: Urine 200 Other: Weight 106.594 kg 108.2 kg 09/30/22 19:20 09/30/22 19:20
--- NOTE | 2022-10-01 12:15 | CA ---
Transthoracic Echo Report Name: Bao Alves Age: 66 Gender: M : 1955 Exam Date: 10/01/2022 10:31 Exam Location: [facility] Ht (in): 70 Wt (lb): 238 Ordering Physician: Sarah Mendieta Attending/Referring Phys: [id number], Gayatri Pusher Runner Alejandra Worthington, JHOAN Procedure CPT: Indications: LV function Cardiac Hx: Technical Quality: Fair Contrast 1: Total Dose (mL): Contrast 2: Total Dose (mL): MEASUREMENTS (Male / Female) Normal Values 2D ECHO LV Diastolic Diameter PLAX 4.4 cm 4.2 - 5.9 / 3.9 - 5.3 cm LV Systolic Diameter PLAX 2.8 cm IVS Diastolic Thickness 1.1 cm 0.6 - 1.0 / 0.6 - 0.9 cm LVPW Diastolic Thickness 1.1 cm 0.6 - 1.0 / 0.6 - 0.9 cm LV Relative Wall Thickness 0.5 RV Internal Dim ED PLAX 3.1 cm LA Systolic Diameter LX 3.5 cm 3.0 - 4.0 / 2.7 - 3.8 cm LA Volume 62.0 cm??? 18 - 58 / 22 - 52 cm??? M-MODE Aortic Root Diameter MM 3.5 cm MV E Point Septal Separation 0.8 cm AV Cusp Separation MM 2.5 cm DOPPLER AV Peak Velocity 142.3 cm/s AV Peak Gradient 8.1 mmHg MV Area PHT 2.8 cm??? Mitral E Point Velocity 108.7 cm/s Mitral A Point Velocity 82.5 cm/s Mitral E to A Ratio 1.3 MV Deceleration Time 274.7 ms MV E' Velocity 9.1 cm/s Mitral E to MV E' Ratio 11.9 TR Peak Velocity 200.0 cm/s TR Peak Gradient 16.0 mmHg Right Ventricular Systolic Press 21.0 mmHg FINDINGS Left Ventricle Left ventricular ejection fraction is estimated at 55-60 %. Left ventricular cavity size normal. Left ventricular wall thickness normal. Right Ventricle Normal right ventricular size. Right ventricular systolic pressure within normal limits. Right Atrium Normal right atrial size. Left Atrium Mildly increased left atrial volume. Mildly increased left atrial area. No evidence for an atrial septal defect. Mitral Valve Structurally normal mitral valve. Mild mitral regurgitation. Aortic Valve Trileaflet aortic valve. No aortic valve stenosis or regurgitation. Tricuspid Valve Structurally normal tricuspid valve. Mild tricuspid regurgitation. Pulmonic Valve Structurally normal pulmonic valve. Pericardium Normal pericardium. No pericardial effusion. Aorta Normal size aortic root and proximal ascending aorta. CONCLUSIONS 1. Normal left ventricle size and systolic function 2. Mild mitral and tricuspid regurgitation Previewed by: Dr. Daphne Quiroga MD (Electronically Signed) Final Date: 01 October 2022 12:14
[2022-10-01 12:34] VITALS: BP 110/68; PULSE 51
--- NOTE | 2022-10-01 13:40 | P.HPIM ---
History of Present Illness H&P Date: 10/01/22 Chief Complaint: Palpitations History and Physical and Discharge Summary: This is 66-year-old gentleman with past medical history of recurrent palpit ations, hyperlipidemia with intolerance to statins ,admitted to the ER with complaints of diffuse chest pressure-denies chest pain, recurrent palpitations without shortness of breath, diaphoresis, dizziness or focal deficits. Denies any radiation. Denies any syncope. Denies nausea vomiting or diarrhea. Reports palpitations occurred prior to shooting pool. EKG reporting atrial tachycardia, Heart rate in the 120s, IV Cardizem initiated and patient spontaneously converted to sinus rhythm, currently sinus bradycardia with heart rates in the 50s. Troponins negative 3. Hematology , coagulation and chemistry panels unremarkable .lipid panel pending . toxicology screen detected benzodiazepines .Chest x-ray reported no acute cardiopulmonary disease. Echo pending. Cardiology consult in place. Review of Systems ROS Statement: Those systems with pertinent positive or pertinent negative responses have been documented in the HPI. ROS Other: All systems not noted in ROS Statement are negative. Past Medical History Past Medical History: Atrial Fibrillation, Hyperlipidemia Additional Past Medical History / Comment(s): a fib rvr History of Any Multi-Drug Resistant Organisms: None Reported Past Surgical History: Orthopedic Surgery Additional Past Surgical History / Comment(s): right wrist/forearm tendon repair due to injury Past Anesthesia/Blood Transfusion Reactions: No Reported Reaction Past Psychological History: Anxiety Smoking Status: Never smoker Past Alcohol Use History: Occasional Past Drug Use History: None Reported - Past Family History Mother Additional Family Medical History / Comment(s): polio as child Father Family Medical History: Unable to Obtain Sister(s) Family Medical History: No Reported History Son(s) Family Medical History: AICD/Pacemaker Additional Family Medical History / Comment(s): WPW-pacer Daughter(s) Additional Family Medical History / Comment(s): anxiety Medications and Allergies Home Medications Medication Instructions Recorded Confirmed Type Cetirizine HCl [Zyrtec] 10 mg PO DAILY 04/17/19 09/30/22 History Escitalopram [Lexapro] 10 mg PO DAILY@1200 04/17/19 09/30/22 History Escitalopram [Lexapro] 20 mg PO DAILY@1200 04/17/19 09/30/22 History Multivitamins, Thera [Multivitamin 1 tab PO DAILY 04/17/19 09/30/22 History (formulary)] clonazePAM [KlonoPIN] 1 mg PO TID 04/17/19 09/30/22 History Cholecalciferol [Vitamin D3 (25 50 mcg PO DAILY 09/30/22 09/30/22 History Mcg = 1000 Iu)] Magnesium 200 mg PO DAILY 09/30/22 09/30/22 History Prevagen 1 cap PO DAILY 09/30/22 09/30/22 History Vitamin B Complex 1 cap PO DAILY 09/30/22 09/30/22 History clonazePAM [KlonoPIN] 1 mg PO DAILY PRN 09/30/22 09/30/22 History Apixaban [Eliquis] 5 mg PO BID #60 tab 10/01/22 Rx Allergies Allergy/AdvReac Type Severity Reaction Status Date / Time haloperidol [From Haldol] Allergy Swelling Verified 09/30/22 20:51 rosuvastatin AdvReac Body Verified 09/30/22 20:58 Aches/ Pain/ Weakness Physical Exam Vitals: Vital Signs Temp Pulse Pulse Resp BP BP Pulse Ox 10/01/22 12:00 96.9 F L 51 L 17 110/68 95 10/01/22 07:58 96.9 F L 55 L 17 116/66 95 10/01/22 03:57 97.6 F 47 L 17 102/60 97 10/01/22 01:44 17 10/01/22 00:00 98.7 F 62 17 118/61 94 L 09/30/22 23:38 61 15 146/82 98 09/30/22 18:38 98.3 F 163 H 20 113/76 100 Intake and Output 09/30/22 10/01/22 10/01/22 22:59 06:59 14:59 Intake Total 77 Output Total 200 Balance -123 Intake: Intake, IV Titration 77 Amount Diltiazem 125 mg In 20 Sodium Chloride 0.9% 100 ml @ 5 MG/HR 5 mls/hr IV .Q24H KAYLA Rx#:[id number] Heparin Sod,Pork in 0.45% 57 NaCl 25,000 unit In 0.45 % NaCl 1 250ml.bag @ 9. 3814 UNITS/KG/HR 10 mls/ hr IV .Q24H KAYLA Rx#: [id number] Output: Urine 200 Other: Weight 106.594 kg 108.2 kg PHYSICAL EXAM: VITAL SIGNS: As above GENERAL: Sitting up in bed, no acute distress HEENT: Conjunctivae normal. eyes normal. NECK: No JVD. No thyroid enlargement. No LNs CARDIOVASCULAR: S1, S2 regular. No murmur RESPIRATION: Breath sounds diminished in the bases. No rhonchi or crackles. No bronchial breathing. ABDOMEN: Soft, nontender . No guarding. no masses palpable.Bowel sounds heard. LEGS: No edema. no swelling PSYCHIATRY: Alert and oriented -3, mood and affect normal. NERVOUS SYSTEM: Cranial N 2-12 grossly normal. No focal deficits. Strength and sensation grossly intact. Skin: Warm and dry, no rash Results CBC & Chem 7: 09/30/22 19:20 09/30/22 19:20 Labs: Abnormal Lab Results - Last 24 Hours (Table) 10/01/22 10/01/22 10/01/22 Range/Units 00:13 02:39 10:52 APTT 32.0 H 51.3 H (22.0-30.0) sec U Benzodiazepines Scrn Detected H (NotDetected) Thrombosis Risk Factor Assmnt - Choose All That Apply Each Factor Represents 1 point: Obesity (BMI >25) Each Risk Factor Represents 2 Points: Age 61-74 years Other congenital or acquired thrombophilia - If yes, enter type in comment: No Thrombosis Risk Factor Assessment Total Risk Factor Score: 3 Thrombosis Risk Factor Assessment Level: Moderate Risk Assessment and Plan Assessment: Chest pressure, recurrent palpitations Sinus bradycardia New onset atrial tachycardia, possible atrial flutter as per cardiology. No rate control medications at this time as patient sinus bradycardia. Anxiety Former nicotine dependence Hyperlipidemia, intolerant to statin therapy Plan: Continue on current medication regime ,monitoring and symptomatic treatment. Evaluated by cardiology, 2-D echo reported normal LV function, mild mitral and tricuspid regurgitation. Anticoagulation with Eliquis initiated with case management verifying outpatient Rx coverage. Rate control medication avoided at this time secondary to patient sinus bradycardia . Cleared by cardiology for discharge. Patient will be discharged home today in a stable condition with guarded prognosis, advised to follow-up OP with Dr. Denton. Discharge Medication List Cetirizine HCl [Zyrtec] 10 mg PO DAILY 04/17/19 [History] Escitalopram [Lexapro] 10 mg PO DAILY@1200 04/17/19 [History] Escitalopram [Lexapro] 20 mg PO DAILY@1200 04/17/19 [History] Multivitamins, Thera [Multivitamin (formulary)] 1 tab PO DAILY 04/17/19 [H istory] clonazePAM [KlonoPIN] 1 mg PO TID 04/17/19 [History] Cholecalciferol [Vitamin D3 (25 Mcg = 1000 Iu)] 50 mcg PO DAILY 09/30/22 [History] Magnesium 200 mg PO DAILY 09/30/22 [History] Prevagen 1 cap PO DAILY 09/30/22 [History] Vitamin B Complex 1 cap PO DAILY 09/30/22 [History] clonazePAM [KlonoPIN] 1 mg PO DAILY PRN 09/30/22 [History] Apixaban [Eliquis] 5 mg PO BID #60 tab 10/01/22 [Rx] The impression and plan of care has been dictated as directed. : I performed a history and examination of this patient, discussed the same with the dictator. I agree with the dictator's note ,documented as a scribe. Any additional findings or plans will be noted.
[2022-10-01] MEDS ORDERED: ESCITALOPRAM 10 MG TAB PO SCH (14:41)
[2022-10-02] MEDS ORDERED: MAGNESIUM OXIDE 400 MG TAB PO SCH (09:00)
[2022-10-02] MEDS ORDERED: ESCITALOPRAM 20 MG TAB PO SCH (12:00)
[2022-10-02] MEDS ORDERED: ESCITALOPRAM 10 MG TAB PO SCH (12:00)
== END 2022-10-01 17:01 | disposition home or self-care (01) | DRG 310 ==
LOC: EC 18:37 → 3SCARD 21:29
PROVIDERS: ADMIT Family Medicine; ATTEND Family Medicine
DX: I48.3 Typical atrial flutter (principal); R00.1 Bradycardia, unspecified; E78.5 Hyperlipidemia, unspecified; R00.2 Palpitations; I08.1 Rheumatic disorders of both mitral and tricuspid valves; F41.9 Anxiety disorder, unspecified; I47.1 Supraventricular tachycardia; Z82.49 Family history of ischemic heart disease and other diseases of the circulatory system; Z87.891 Personal history of nicotine dependence; Z88.8 Allergy status to other drugs, medicaments and biological substances; Z79.01 Long term (current) use of anticoagulants; Z79.899 Other long term (current) drug therapy; Z87.828 Personal history of other (healed) physical injury and trauma
CPT/HCPCS: 36415; 71046; 80053; 80061; 80306; 83735; 84443; 84484; 85025; 85610; 85730; 93005; 93306; 96365; 96366; 96375; 99291

== ENCOUNTER 2023-02-03 09:14 | Day surgery (SDC) | payer MEDICARE, OTHER ==
[2023-01-30 15:48] VITALS: BMI 35.4
[2023-02-03] MEDS: SODIUM CHLORIDE 0.9% 1,000 ML IV SCH (09:55)
[2023-02-03] MEDS ORDERED: ISOPROTERENOL 250 MCG/1.25 ML SYR IV ONE (10:59)
[2023-02-03] MEDS ORDERED: MIDAZOLAM 2 MG/2 ML VIAL ONE (10:59)
[2023-02-03] MEDS ORDERED: fentaNYL (PF) 50 MCG/ML 2 ML AMP ONE (10:59)
[2023-02-03] MEDS ORDERED: LIDOCAINE 1% INJ 10MG/ML (20 ML MDV) SQ ONE ×2 (11:38→12:20)
[2023-02-03] MEDS ORDERED: LIDOCAINE 1% INJ 10MG/ML (20 ML MDV) ONE (11:40)
[2023-02-03] MEDS ORDERED: ADENOSINE 3 MG/ML 4 ML VIAL ONE (12:19)
[2023-02-03] MEDS ORDERED: HEPARIN SODIUM (1,000 UNIT/ML) 1,000 UNIT in SODIUM CHLORIDE 0.9% 1,000 ML IRRIGATION ONE (13:47)
[2023-02-03] MEDS ORDERED: ACETAMINOPHEN TAB 325 MG TAB PO PRN (18:07)
[2023-02-03] MEDS ORDERED: ACETAMINOPHEN IV (For NPO) 1,000 MG in EMPTY BAG 1 BAG IVPB ONE (18:07)
--- NOTE | 2023-02-03 18:17 | P.EPPROC ---
- EP Procedure Note Electrophysiology Procedure Note: Diagnosis Recurrent palpitations and SVT Resting sinus bradycardia, unable to take AV corinne blocking drugs Result Inducible AV node reentrant tachycardia Status post successful ablation of the slow pathway and the tachycardia was rendered noninducible Details Patient was brought to the EP lab in a fasting state. Written informed consent was obtained prior to the procedure. Venous sheaths of placed in the right and left femoral veins Diagnostic catheters were placed in the high right atrium, coronary sinus, His bundle area right ventricle Later mapping and ablation catheter was placed along with a long sheath Sinus node recovery times at 600, 500, and 400 ms were 1104, 1149 and 1111 Corinne response to His bundle pacing AV node Wenckebach block 420 ms VA Wenckebach block 500 ms For diagnostic EP study is performed on and off Isuprel SVT was induced with double extrastimuli from the RV apex at 500/300/260 ms only during Isuprel withdrawal Mapping and ablation catheter was placed. His bundle tagged, coronary sinus tach RF ablation performed occasional junctional beats noted Thereafter we could not induce any SVT during Isuprel withdrawal and ventricular extra stimulation up double extrastimuli Ablation VA Wenckebach block 380 ms AV node Wenckebach block 340 ms Final OK interval 166 ms Patient tolerated the procedure well without any acute complications
--- NOTE | 2023-02-03 18:18 | P.PRLE ---
RE: Bao Alves Dear [place] Mr. Alves underwent a diagnostic EP study which revealed typical AV node reentrant tachycardia Urine Successful mapping and ablation of this The tachycardia was rendered noninducible He will continue lovastatin as before Thank you for entrusting me with the care of the patient Warm regards Sincerely Cristofer Denton
[2023-02-03] MEDS: clonazePAM 1 MG TAB PO SCH (20:49)
[2023-02-03] MEDS ORDERED: ATORVASTATIN 10 MG TAB PO SCH (21:00)
[2023-02-04] MEDS: SODIUM CHLORIDE 0.9% 1,000 ML IV SCH (04:48)
--- NOTE | 2023-02-04 08:20 | P.DS ---
Providers Attending physician: Cristofer Denton Primary care physician: [facility] Course: Patient is doing well. No chest discomfort dizziness lightheadedness His groins healing well On examination his heart sounds are normal regular Breath sounds are clear Vitals are stable blood pressure is normal 130/60 mmHg pulse rate 60-70 beats a minute afebrile Is soft Abdomen groins Impression AV angelique reentrant tachycardia Status post successful ablation of the slow pathway Tachycardia rendered noninducible Dyslipidemia currently on lovastatin Plan (To be sent today He may be discharged home later this morning and follow-up with me in a week or 2 Plan - Discharge Summary Discharge Rx Participant: Yes New Discharge Prescriptions: No Action clonazePAM [KlonoPIN] 1 mg PO TID Escitalopram [Lexapro] 10 mg PO DAILY@1200 Escitalopram [Lexapro] 20 mg PO DAILY@1200 Cetirizine HCl [Zyrtec] 10 mg PO DAILY clonazePAM [KlonoPIN] 1 mg PO DAILY PRN PRN Reason: Anxiety Lovastatin [Mevacor] 40 mg PO HS Discharge Medication List Cetirizine HCl [Zyrtec] 10 mg PO DAILY 04/17/19 [History] Escitalopram [Lexapro] 10 mg PO DAILY@1200 04/17/19 [History] Escitalopram [Lexapro] 20 mg PO DAILY@1200 04/17/19 [History] clonazePAM [KlonoPIN] 1 mg PO TID 04/17/19 [History] clonazePAM [KlonoPIN] 1 mg PO DAILY PRN 09/30/22 [History] Lovastatin [Mevacor] 40 mg PO HS 01/30/23 [History]
[2023-02-04 08:54] VITALS: BP 108/58; PULSE 95; RESP 18; TEMP 97.9
[2023-02-04] MEDS: clonazePAM 1 MG TAB PO SCH (08:55)
[2023-02-04] MEDS ORDERED: ESCITALOPRAM 10 MG TAB PO SCH (12:00)
[2023-02-04 16:50] LABS: Chol/HDL Ratio 3.62 Ratio; LDL Cholesterol,Calculated 113.3 mg/dL (0.0-131.0)
== END 2023-02-04 11:00 | disposition home or self-care (01) ==
LOC: CATHEP 09:14 → 6NMEDSUR 13:45 → CATHEP 02-04 11:00
PROVIDERS: ATTEND Internal Medicine Clinical Cardiac Electrophysiology
DX: I47.1 Supraventricular tachycardia (principal); I44.1 Atrioventricular block, second degree; E78.5 Hyperlipidemia, unspecified; F17.290 Nicotine dependence, other tobacco product, uncomplicated; I49.5 Sick sinus syndrome; Z82.49 Family history of ischemic heart disease and other diseases of the circulatory system; Z79.899 Other long term (current) drug therapy; Z79.01 Long term (current) use of anticoagulants
CPT/HCPCS: 93653; 93623; 80061; C1894; C1769; C1760; C1730 ×3; C1893; C1732; J2250; J2001; J3010; J1644

== ENCOUNTER 2024-05-10 08:34 | Day surgery (SDC) | payer MEDICARE, OTHER ==
[~2024-05-10 08:34] MED LIST: LIDOCAINE 1% (10MG/ML) FOR IV START INTRADERMA PRN
[2024-05-10] MEDS: IV FLUID CONTINUATION 1,000 ML IV ONE (09:06)
[2024-05-10] MEDS: LACTATED RINGERS 1,000 ML IV SCH (09:07)
[2024-05-10 09:19] VITALS: TEMP 97.4
[2024-05-10] MEDS ORDERED: PROPOFOL 10 MG/ML 20 ML VIAL IV ONE (09:52)
--- NOTE | 2024-05-10 09:57 | P.GSHP ---
History of Present Illness H&P Date: 05/10/24 Chief Complaint: Colon cancer screening 68-year-old male here today for colonoscopy. Thinks his last colonoscopy was 5 to 10 years ago. No bowel complaints. History of known hemorrhoids. No major symptoms from his hemorrhoids. No family history of colon cancer. Past Medical History Past Medical History: Atrial Fibrillation, Hyperlipidemia Additional Past Medical History / Comment(s): a fib History of Any Multi-Drug Resistant Organisms: None Reported Past Surgical History: Ablation, Orthopedic Surgery Additional Past Surgical History / Comment(s): CARDIAC ABLATION. right wrist/forearm tendon repair due to injury Past Anesthesia/Blood Transfusion Reactions: No Reported Reaction Past Psychological History: Anxiety Smoking Status: Never smoker Past Alcohol Use History: Occasional Additional Past Alcohol Use History / Comment(s): QUIT SMOKING 2009-SMOKES FOR ABOUT 10 YEARS Past Drug Use History: None Reported - Past Family History Mother Additional Family Medical History / Comment(s): polio as child Father Family Medical History: Unable to Obtain Sister(s) Family Medical History: No Reported History Son(s) Family Medical History: AICD/Pacemaker Additional Family Medical History / Comment(s): WPW-pacer Daughter(s) Additional Family Medical History / Comment(s): anxiety Medications and Allergies Home Medications Medication Instructions Recorded Confirmed Type Cetirizine HCl [Zyrtec] 10 mg PO DAILY 04/17/19 05/10/24 History Escitalopram [Lexapro] 10 mg PO DAILY@1200 04/17/19 05/10/24 History Escitalopram [Lexapro] 20 mg PO DAILY@1200 04/17/19 05/10/24 History clonazePAM [KlonoPIN] 1 mg PO TID PRN 04/17/19 05/10/24 History Lovastatin [Mevacor] 40 mg PO HS 01/30/23 05/10/24 History Cholecalciferol [Vitamin D3 (125 125 mcg PO DAILY 05/06/24 05/10/24 History Mcg = 5000 Iu)] Multivitamins, Thera [Multivitamin 1 tab PO DAILY 05/06/24 05/10/24 History (formulary)] Prevagen 1 tab PO DAILY 05/06/24 05/10/24 History Tamsulosin HCl [Flomax] 0.4 mg PO HS 05/06/24 05/10/24 History levoFLOXacin 500 mg PO DAILY 05/06/24 05/10/24 History Allergies Allergy/AdvReac Type Severity Reaction Status Date / Time haloperidol [From Haldol] Allergy Swelling Verified 05/10/24 09:09 rosuvastatin AdvReac Body Verified 05/10/24 09:09 Aches/ Pain/ Weakness Surgical - Exam Vital Signs Temp Pulse Resp BP Pulse Ox 97.4 F L 78 16 136/76 93 L 05/10/24 09:07 05/10/24 09:07 05/10/24 09:07 05/10/24 09:07 05/10/24 09:07 Physical exam: General: Well-developed, well-nourished HEENT: Normocephalic, sclerae nonicteric Abdomen: Nontender, nondistended Extremities: No edema Neuro: Alert and oriented Assessment and Plan (1) Colon cancer screening Narrative/Plan: Will proceed with colonoscopy at this time. Current Visit: Yes Status: Acute Code(s): Z12.11 - ENCOUNTER FOR SCREENING FOR MALIGNANT NEOPLASM OF COLON SNOMED Code(s): 750140382
--- NOTE | 2024-05-10 10:11 | P.PCN ---
Date of Procedure: 05/10/24 Procedure(s) Performed: PREOPERATIVE DIAGNOSIS: Colon cancer screening POSTOPERATIVE DIAGNOSIS: Diverticulosis, sigmoid colon polyp x 2 PROCEDURE: Colonoscopy with snare polypectomy ANESTHESIA: MAC SURGEON: Davey Flor M.D. SPECIMENS: Colon polyp ENDOSCOPIC PROCEDURE: The patient was placed on the endoscopy table in the left decubitus position. The Olympus colonoscope was inserted into the anus and passed under direct visualization to the base of the cecum. The appendiceal orifice was visualized. From that point the scope was slowly withdrawn inspecting all surfaces carefully. There were no neoplastic inflammatory or polypoid lesions throughout the cecum, ascending, transverse, and descending colon. In the sigmoid a small polyp was seen and removed using the snare with cautery technique. Another small polyp adjacent to that was removed as well. The remainder of the sigmoid and rectum was normal. There was mild left-sided diverticulosis. Digital rectal examination was normal. The patient was taken to the recovery room in stable condition per anesthesia guidelines. RECOMMENDATIONS: Await biopsy results. Will contact patient with next colonoscopy.
[2024-05-10 10:34] VITALS: BP 127/65; PULSE 60; RESP 15
== END 2024-05-10 10:49 | disposition home or self-care (01) ==
LOC: ORWHC2ENDO 08:34
PROVIDERS: ATTEND Surgery
DX: Z12.11 Encounter for screening for malignant neoplasm of colon (principal); D12.3 Benign neoplasm of transverse colon; D12.5 Benign neoplasm of sigmoid colon; K57.30 Diverticulosis of large intestine without perforation or abscess without bleeding; I48.91 Unspecified atrial fibrillation; E78.5 Hyperlipidemia, unspecified; F41.9 Anxiety disorder, unspecified; F10.90 Alcohol use, unspecified, uncomplicated; Z88.8 Allergy status to other drugs, medicaments and biological substances; Z79.899 Other long term (current) drug therapy; Z98.890 Other specified postprocedural states; Z87.19 Personal history of other diseases of the digestive system; Z87.891 Personal history of nicotine dependence
CPT/HCPCS: 88305; 45380; 45385; J2704

== ENCOUNTER 2024-06-20 14:18 | Emergency (ER) | payer MEDICARE, OTHER ==
[2024-06-20] MEDS ORDERED: SODIUM CHLORIDE 0.9% 1,000 ML BAG ONE (19:30)
--- NOTE | 2024-07-14 13:45 | CT ---
EXAM: CT abdomen pelvis without contrast. DATE OF EXAM: 06/20/24 Reason for study: Abdominal pain one month, left lower quadrant. COMPARISON: None, please note PACS downtime occurred during the radiologist interpretation of these i mages with limited priors/reports.. TECHNIQUE: Abdominal CT with axial imaging and sagittal and coronal reformats without IV or oral contrast. Lack of IV or oral contrast limits evaluation of solid and hollow organ viscera.. One or more CT dose redu ction strategies were utilized during this examination. Total DLP administered was 1010 mGycm. FINDINGS: LOWER CHEST: Unremarkable ABDOMEN LIVER: Scattered hypodense lesions are seen throughout the liver which are indeterminate. GALLBLADDER AND BILE DUCTS: Unremarkable. PANCREAS: Unremarkable. SPLEEN: Unremarkable. ADRENAL GLANDS: Unremarkable. KIDNEYS AND URETERS: Nonobstructing 2 mm left renal calculus. No right renal calculi. No obstructive uropathy. PELVIS BLADDER: Unremarkable REPRODUCTIVE: Prostate is enlarged in size measuring 5.2 cm in transverse dimension. ABDOMEN & PELVIS STOMACH AND BOWEL: Stomach and duodenum are unremarkable. No evidence of bowel obstruction. Scattere d colonic diverticula. The appendix is normal. PERITONEUM: No evidence of pneumoperitoneum or free fluid. Nonspecific sarai mesentery with some prom inent lymph nodes. VASCULATURE: No evidence of aortic aneurysm. MUSCULOSKELETAL: Mild disc degeneration changes are present throughout the thoracolumbar spine. LYMPH NODES: No gross evidence for lymphadenopathy. SOFT TISSUE/ABDOMINAL WALL: Bilateral fat-containing inguinal hernias. IMPRESSION: 1. No evidence for acute abdominal process. No evidence for diverticulitis or acute vascular quadran t process 2. Sarai mesentery which can be seen in setting of sclerosing panniculitis. 3. Scattered indeterminate lesions of the liver. Further evaluation with liver mass protocol MRI. Fi ndings favor at this time biliary hamartomas versus cysts. Malignancy not excluded but felt to be les s likely. 4. Left nonobstructing renal calculus. 5. Prostatomegaly correlate serum PSA. 6. Bilateral fat-containing inguinal hernias. Called findings to Dr willett 928pm 06/20/2024
== END 2024-06-20 23:00 | disposition home or self-care (01) ==
LOC: EC 14:18
CPT/HCPCS: 74176; 80053; 81003; 82150; 83690; 85025; 96360; 96361; 99284

== ENCOUNTER → 2024-07-29 | Outpatient (CLI) | payer MEDICARE, OTHER ==
--- NOTE | 2024-07-30 15:00 | MR ---
EXAMINATION TYPE: MR liver wo/w con DATE OF EXAM: 07/29/2024 7:10 PM INDICATION: Patient age:Male; 68 years old; Reason for study: R93.2; D13.4 LIVER; PHH. COMPARISON: CT abdomen and pelvis 06/20/2024, 12/19/2019 TECHNIQUE: Multiplanar multi-sequence imaging was performed without and with IV contrast. The patien t was given 11 ccs of Gadavist intravenously and dynamic imaging was performed. Post IV contrast subt raction images were also submitted for review. FINDINGS: LOWER CHEST: No gross irregularity. ABDOMEN Liver: Innumerable T2 thin-walled nonenhancing cystic lesions throughout the liver. The largest measu re up to 1.6 cm.. Stable from prior CT 12/19/2019 No fatty infiltration. Noncirrhotic morphology. Gallbladder and Bile ducts: Unremarkable. Pancreas: Unremarkable. Spleen: Unremarkable. Adrenal glands: Unremarkable. Kidneys: No hydronephrosis or suspicious enhancing mass. Few scattered punctate nonenhancing bilatera l renal cysts. Stomach and Bowel: Unremarkable as visualized. Peritoneum: No evidence of pneumoperitoneum, free fluid, or adenopathy. Sarai mesentery redemonstrat ed. Stable dating back to 2019. Vasculature: Unremarkable. No aortic aneurysm. Abdominal wall: Unremarkable. Musculoskeletal: Multilevel degenerative disc disease of the lumbar spine. IMPRESSION: 1. Innumerable small nonenhancing cystic lesions throughout the liver redemonstrated dating back to 2019. Most consistent with benign biliary hamartomas. 2. Stable sarai mesentery dating back to 2019. Nonspecific with a variety of etiologies such as mese nteric panniculitis versus idiopathic versus other. [facility], Workstation [id number], 07/30/2024 2:58 PM
== END | disposition home or self-care (01) ==
LOC: RADMRIMAIN 17:37
PROVIDERS: ATTEND Family Medicine
DX: D13.4 Benign neoplasm of liver (principal); R93.2 Abnormal findings on diagnostic imaging of liver and biliary tract
CPT/HCPCS: 74183

== ENCOUNTER → 2024-09-14 | Outpatient (CLI) | payer MEDICARE, OTHER ==
[2024-09-15 02:31] LABS: Basophils % (A) 1.3 %; Eosinophils # (A) 0.16 X 10*3/uL (0.04-0.35); Eosinophils % (A) 2.1 %; HCT 43.8 % (39.6-50.0); Lymphocytes # (A) 1.56 X 10*3/uL (0.90-5.00); Lymphocytes % (A) 20.4 %; MCHC 34.2 g/dL (32.0-37.0); MCV 96.5 FL (80.0-97.0); Mean Platelet Volume 10.9 FL (9.5-12.2); Monocytes # (A) 0.74 X 10*3/uL (0.20-1.00); Monocytes % (A) 9.7 %; NRBC Per 100 WBC 0 X 10*3/uL (0.00-0.01); Neutrophils # (A) 5.05 X 10*3/uL (1.80-7.70); Platelet Count 246 X 10*3/uL (140-440); RBC 4.54 X 10*6/uL (4.40-5.60); RDW 12.4 % (11.5-14.5); WBC 7.65 X 10*3/uL (4.50-10.00)
[2024-09-15 03:30] LABS: NT-Pro-B-Type Natriuretic Pept 44 pg/mL (0-125)
[2024-09-15 03:31] LABS: ALT 23 U/L (10-49); AST 21 U/L (14-35); Albumin 4.2 g/dL (3.8-4.9); Albumin/Globulin Ratio 1.75 Ratio (1.60-3.17); Alkaline Phosphatase 72 U/L (41-126); BUN/Creat Ratio 14.73 Ratio (12.00-20.00); Blood Urea Nitrogen 16.2 mg/dL (9.0-27.0); Calcium 9.3 mg/dL (8.7-10.3); Carbon Dioxide 25.3 mmol/L (21.6-31.8); Chloride 104 mmol/L (96-109); Globulin 2.4 g/dL (1.6-3.3); Glucose 90 mg/dL (70-110); Potassium 4.3 mmol/L (3.5-5.5); Sodium 140 mmol/L (135-145); Total Bilirubin 0.9 mg/dL (0.3-1.2); Total Protein 6.6 g/dL (6.2-8.2)
== END | disposition home or self-care (01) ==
LOC: LABWHC1 15:40
PROVIDERS: ATTEND Physician Assistant
DX: R05.3 Chronic cough (principal); I51.7 Cardiomegaly
CPT/HCPCS: 36415; 80053; 83880; 85025

== ENCOUNTER → 2024-09-20 | Outpatient (CLI) | payer MEDICARE, OTHER ==
--- NOTE | 2024-09-21 10:49 | CA ---
Transthoracic Echo Report Name: Bao Alves Age: 68 Gender: M : 1955 Exam Date: 09/20/2024 16:16 Exam Location: [facility] Ht (in): 70 Wt (lb): 240 Ordering Physician: Ricky Gordon MD Attending/Referring Phys: Catie Machuca PAC Portfolio Administrator Alejandra Worthington RDCS Procedure CPT: Indications: I51.7 Cardiomegaly Cardiac Hx: Technical Quality: Fair Contrast 1: Total Dose (mL): Contrast 2: Total Dose (mL): MEASUREMENTS (Male / Female) Normal Values 2D ECHO LV Diastolic Diameter PLAX 5.0 cm 4.2 - 5.9 / 3.9 - 5.3 cm LV Systolic Diameter PLAX 3.4 cm IVS Diastolic Thickness 1.1 cm 0.6 - 1.0 / 0.6 - 0.9 cm LVPW Diastolic Thickness 1.1 cm 0.6 - 1.0 / 0.6 - 0.9 cm LV Relative Wall Thickness 0.4 RV Internal Dim ED PLAX 3.5 cm LA Systolic Diameter LX 3.6 cm 3.0 - 4.0 / 2.7 - 3.8 cm LV Diastolic Volume MOD 4C 109.1 cm??? LV Systolic Volume MOD 4C 60.0 cm??? LV Ejection Fraction MOD 4C 45.0 % LV Cardiac Index MOD 4C 1811.8 cm???/min???m??? LV Diastolic Length 4C 10.1 cm LV Systolic Length 4C 9.3 cm LV Diastolic Volume MOD 2C 75.4 cm??? LV Systolic Volume MOD 2C 39.5 cm??? LV Ejection Fraction MOD 2C 47.6 % LV Cardiac Index MOD 2C 1325.6 cm???/min???m??? LV Diastolic Length 2C 9.7 cm LV Systolic Length 2C 8.5 cm M-MODE Aortic Root Diameter MM 3.2 cm LA Systolic Diameter MM 2.2 cm LA Ao Ratio MM 0.7 DOPPLER AV Peak Velocity 131.0 cm/s AV Peak Gradient 6.9 mmHg Mitral E Point Velocity 60.3 cm/s Mitral A Point Velocity 88.2 cm/s Mitral E to A Ratio 0.7 MV Deceleration Time 161.7 ms FINDINGS Left Ventricle Left ventricular ejection fraction is estimated at 50-55 %. Left ventricular cavity size normal. Mildly increased septal wall thickness. Normal left ventricular wall motion. Right Ventricle Mild right ventricular dilatation. Unable to estimate the right ventricular systolic pressure. Right Atrium Normal right atrial size. No right atrial thrombus or mass seen. Left Atrium Normal left atrial size. No left atrial thrombus or mass present. Mitral Valve Structurally normal mitral valve. No mitral stenosis, regurgitation or prolapse. Aortic Valve Trileaflet aortic valve. No aortic valve stenosis or regurgitation. Tricuspid Valve Structurally normal tricuspid valve. No tricuspid stenosis, regurgitation or prolapse. Pulmonic Valve Structurally normal pulmonic valve. Trace to mild pulmonic regurgitation. Pericardium No pericardial or pleural effusion. Aorta Normal size aortic root and proximal ascending aorta. CONCLUSIONS Normal LV function Previewed by: Dr. Asad Villareal MD (Electronically Signed) Final Date: 21 September 2024 10:48
== END | disposition home or self-care (01) ==
LOC: RADECHMAIN 16:06
PROVIDERS: ATTEND Family Medicine
DX: I51.7 Cardiomegaly (principal)
CPT/HCPCS: 93306

== ENCOUNTER 2024-11-30 22:42 | Observation (INO) | payer MEDICARE, OTHER ==
--- NOTE | 2024-11-30 22:52 | ED ---
Chest Pain HPI - General Stated Complaint: Chest Pain Time Seen by Provider: 11/30/24 22:50 Source: RN notes reviewed, old records reviewed Limitations: no limitations - History of Present Illness Initial Comments: This is a 68-year-old male who presents with chest pain left-sided chest pain tachycardia palpitations shortness of breath diaphoresis. History of atrial fibrillation with ablation, patient states he feels unwell symptoms are getting progressively worse and still present on arrival to the ER although tachycardia is improved MD Complaint: chest pain, other (Potation's tachycardia) -: hour(s) Onset: during rest Pain Location: left chest Pain Radiation: LUE Severity: moderate Severity scale (1-10): 4 Quality: tightness Consistency: constant Improves With: nothing Worsens With: nothing Anginal Symptoms: diaphoresis, dyspnea, sense of impending doom Other Symptoms: palpitations Treatments Prior to Arrival: none - Related Data Home Medications Medication Instructions Recorded Confirmed Cetirizine HCl [Zyrtec] 10 mg PO DAILY 04/17/19 05/10/24 Escitalopram [Lexapro] 10 mg PO DAILY@1200 04/17/19 05/10/24 Escitalopram [Lexapro] 20 mg PO DAILY@1200 04/17/19 05/10/24 clonazePAM [KlonoPIN] 1 mg PO TID PRN 04/17/19 05/10/24 Lovastatin [Mevacor] 40 mg PO HS 01/30/23 05/10/24 Cholecalciferol [Vitamin D3 (125 125 mcg PO DAILY 05/06/24 05/10/24 Mcg = 5000 Iu)] Multivitamins, Thera [Multivitamin 1 tab PO DAILY 05/06/24 05/10/24 (formulary)] Prevagen 1 tab PO DAILY 05/06/24 05/10/24 Tamsulosin HCl [Flomax] 0.4 mg PO HS 05/06/24 05/10/24 levoFLOXacin 500 mg PO DAILY 05/06/24 05/10/24 Allergies Allergy/AdvReac Type Severity Reaction Status Date / Time haloperidol [From Haldol] Allergy Swelling Verified 11/30/24 22:54 rosuvastatin AdvReac Body Verified 11/30/24 22:54 Aches/ Pain/ Weakness Review of Systems ROS Statement: Those systems with pertinent positive or pertinent negative responses have been documented in the HPI. ROS Other: All systems not noted in ROS Statement are negative. EKG Findings - EKG Comments: EKG Findings:: EKG is sinus tachycardia 101 TX 164 QRS 97 QTc 386 - EKG Results: EKG: interpreted by CHLOE Past Medical History Past Medical History: Atrial Fibrillation, Hyperlipidemia Additional Past Medical History / Comment(s): a fib History of Any Multi-Drug Resistant Organisms: None Reported Past Surgical History: Ablation, Orthopedic Surgery Additional Past Surgical History / Comment(s): CARDIAC ABLATION. right wrist/forearm tendon repair due to injury Past Anesthesia/Blood Transfusion Reactions: No Reported Reaction Past Psychological History: Anxiety Smoking Status: Never smoker Past Alcohol Use History: Occasional Additional Past Alcohol Use History / Comment(s): QUIT SMOKING 2010-SMOKES FOR ABOUT 10 YEARS Past Drug Use History: None Reported - Past Family History Mother Additional Family Medical History / Comment(s): polio as child Father Family Medical History: Unable to Obtain Sister(s) Family Medical History: No Reported History Son(s) Family Medical History: AICD/Pacemaker Additional Family Medical History / Comment(s): WPW-pacer Daughter(s) Additional Family Medical History / Comment(s): anxiety General Exam General appearance: alert, in no apparent distress, anxious Head exam: Present: atraumatic, normocephalic, normal inspection Eye exam: Present: normal appearance, PERRL, EOMI. Absent: scleral icterus, conjunctival injection, periorbital swelling ENT exam: Present: normal exam, mucous membranes moist Neck exam: Present: normal inspection. Absent: tenderness, meningismus, lymphadenopathy Respiratory exam: Present: normal lung sounds bilaterally. Absent: respiratory distress, wheezes, rales, rhonchi, stridor Cardiovascular Exam: Present: normal rhythm, tachycardia, normal heart sounds. Absent: systolic murmur, diastolic murmur, rubs, gallop, clicks GI/Abdominal exam: Present: soft, normal bowel sounds. Absent: distended, tenderness, guarding, rebound, rigid Extremities exam: Present: normal inspection, full ROM, normal capillary refill. Absent: tenderness, pedal edema, joint swelling, calf tenderness Back exam: Present: normal inspection Neurological exam: Present: alert, oriented X3, CN II-XII intact Psychiatric exam: Present: normal affect, normal mood Skin exam: Present: warm, dry, intact, normal color. Absent: rash Course Vital Signs 11/30/24 12/01/24 22:54 00:27 Temperature 98.2 F 98.2 F Pulse Rate 102 H 70 Respiratory 18 19 Rate Blood Pressure 107/71 122/79 O2 Sat by Pulse 97 94 L Oximetry - Reevaluation(s) Reevaluation #1: 12/01/24 00:48 Medical records reviewed Reevaluation #2: 12/01/24 00:48 Patient still with symptoms here in the ER but heart rate is improved Reevaluation #3: 12/01/24 00:49 Informed of results questions answered Reevaluation #4: Was pt. sent in by a medical professional or institution (, [facility], [facility], urgent care, hospital, or skilled nursing...) When possible be specific @ -no Did you speak to anyone other than the patient for history (EMS, parent, family, police, friend...)? What history was obtained from this source @ -no Did you review nursing and triage notes (agree or disagree)? Why? @ -agree Are old charts reviewed (outside hosp., previous admission, EMS record, old EKG, old radiological studies, urgent care reports/EKG's, skilled nursing records)? Report findings @ -yes Differential Diagnosis (chest pain, altered mental status, abdominal pain women, abdominal pain men, vaginal bleeding, weakness, fever, dyspnea, syncope, headache, dizziness, GI bleed, back pain, seizure, CVA, palpatations, mental health, musculoskeletal)? @ -prior EKG interpreted by me (3pts min.). @ -yes X-rays interpreted by me (1pt min.). @ -yes negative for acute disease CT interpreted by me (1pt min.). @ -no U/S interpreted by me (1pt. min.). @ -no What testing was considered but not performed or refused? (CT, X-rays, U/S, labs)? Why? @ -none What meds were considered but not given or refused? Why? @ -none Did you discuss the management of the patient with other professionals (professionals i.e. [facility] George, [facility], lab, RT, psych nurse, social contact worker, health information administrator, teacher, assistant chief nursing officer, case specialist)? Give summary @ -no Was smoking cessation discussed for >3mins.? @ -no Was critical care preformed (if so, how long)? @ -no Were there social determinants of health that impacted care today? How? (Homelessness, low income, unemployed, alcoholism, drug addiction, transportation, low edu. Level, literacy, decrease access to med. care, care home, rehab)? @ -none Was there de-escalation of care discussed even if they declined (Discuss DNR or withdrawal of care, Hospice)? DNR status @ -no What co-morbidities impacted this encounter? (DM, HTN, Smoking, COPD, CAD, Cancer, CVA, ARF, Chemo, Hep., AIDS, mental health diagnosis, sleep apnea, morbid obesity)? @ -none Was patient admitted / discharged? Hospital course, mention meds given and route, prescriptions, significant lab abnormalities, going to OR and other pertinent info. @ - Undiagnosed new problem with uncertain prognosis? @ -no Drug Therapy requiring intensive monitoring for toxicity (Heparin, Nitro, Insulin, Cardizem)? @ -no Were any procedures done? @ -no Diagnosis/symptom? @ - Acute, or Chronic, or Acute on Chronic? @ -Acute Uncomplicated (without systemic symptoms) or Complicated (systemic symptoms)? @ -Complicated Side effects of treatment? @ -no Exacerbation, Progression, or Severe Exacerbation? @ -exacerbation Poses a threat to life or bodily function? How? (Chest pain, USA, NC, pneumonia, PE, COPD, DKA, ARF, appy, cholecystitis, CVA, Diverticulitis, Homicidal, Suicidal, threat to staff... and all critical care pts) @ -yes Reevaluation #5: Differential Chest Pain: Stable Angina, Unstable Angina, STEMI, NSTEMI Aortic Dissection, Pneumothorax, Musculoskeletal, Esophageal Spasm GERD, Cholecystitis, Pancreatitis, Zoster, this is not meant to be an all-inclusive list. Chest Pain MDM - MDM 68 male to the ER for evaluation of chest pain left-sided chest pain pressure and heaviness. Patient has persistent symptoms tonight history of atrial fibrillation with ablation palpitations tachycardia and diaphoresis. Patient will be admitted for cardiac observation Disposition Clinical Impression: Chest pain, Palpitations, Tachycardia, Arrhythmia Disposition: ADMITTED IP TO THIS HOSP Condition: Good Is patient prescribed a controlled substance at d/c from ED?: No Referrals: Brigette,Catie, PAC [REFERRING] - 1-2 days Time of Disposition: 00:30
[2024-11-30] MEDS: SODIUM CHLORIDE 0.9% 1,000 ML IV STA (23:19)
[2024-11-30 23:43] LABS: Basophils # (A) 0.1 k/uL (0-0.2); Basophils % (A) 1 %; Eosinophils # (A) 0.3 k/uL (0-0.7); Eosinophils % (A) 4 %; HCT 45.2 % (39.0-53.0); HGB 15.4 gm/dL (13.0-17.5); Lymphocytes # (A) 2.1 k/uL (1.0-4.8); Lymphocytes % (A) 27 %; MCH 32.3 pg (25.0-35.0); MCHC 34.2 g/dL (31.0-37.0); MCV 94.4 fL (80.0-100.0); Mean Platelet Volume 7.8; Monocytes # (A) 0.5 k/uL (0-1.0); Monocytes % (A) 7 %; Neutrophils # (A) 4.5 k/uL (1.3-7.7); Neutrophils % (A) 59 %; Platelet Count 223 k/uL (150-450); RBC 4.78 m/uL (4.30-5.90); RDW 11.9 % (11.5-15.5); WBC 7.6 k/uL (3.8-10.6)
[2024-11-30 23:51] LABS: Partial Thromboplastin Time 26.1 sec (22.0-30.0); Prothrombin Time 10.7 sec (10.0-12.5)
[2024-12-01 00:01] LABS: ALT 16 U/L (4-49); African American GFR (CKD) >90 (>60 ml/min/1.73 sqM); Anion Gap 6 mmol/L; Blood Urea Nitrogen 13 mg/dL (9-20); Calcium 6.6 mg/dL (8.4-10.2); Carbon Dioxide 20 mmol/L (22-30); Chloride 113 mmol/L (98-107); Glucose 95 mg/dL (74-99); Lipase 88 U/L (23-300); Non-African American GFR(CKD) 88 (>60 ml/min/1.73 sqM); Sodium 139 mmol/L (137-145); Total Bilirubin 0.7 mg/dL (0.2-1.3)
[2024-12-01 00:04] LABS: NT-Pro-B-Type Natriuretic Pept 82 pg/mL
[2024-12-01 00:05] LABS: Albumin 2.6 g/dL (3.5-5.0); Potassium 3.5 mmol/L (3.5-5.1)
[2024-12-01 00:06] LABS: AST 28 U/L (17-59); Alkaline Phosphatase 35 U/L (38-126); Magnesium 1.6 mg/dL (1.6-2.3)
[2024-12-01] MEDS ORDERED: MORPHINE SULFATE 4 MG/ML SYRINGE IV PRN (00:45)
[2024-12-01] MEDS ORDERED: NALOXONE 0.4 MG/ML 1 ML VIAL IV PRN (00:45)
[2024-12-01] MEDS ORDERED: ONDANSETRON 4 MG/2 ML VIAL IVP PRN (00:45)
[2024-12-01] MEDS: ESCITALOPRAM 20 MG TAB PO STA (01:08)
[2024-12-01] MEDS: clonazePAM 0.5 MG TAB PO STA (01:22)
[2024-12-01] MEDS: SODIUM CHLORIDE 0.9% 1,000 ML IV SCH (01:24)
--- NOTE | 2024-12-01 01:35 | XR ---
EXAM: XR Chest, 2 Views CLINICAL HISTORY: ITS.REASON XR Reason: Chest Pain TECHNIQUE: Frontal and lateral views of the chest. COMPARISON: No relevant prior studies available. FINDINGS: Lungs: No consolidation or mass. Pleural space: No effusion. Heart: cardiomegaly. Bones/joints: No acute findings. IMPRESSION: No acute cardiopulmonary process.
--- NOTE | 2024-12-01 04:42 | P.HPIM ---
History of Present Illness H&P Date: 12/01/24 Patient is a 64-year-old male with PMH of a flutter status post ablation who presents to the emergency room with complaints of chest discomfort. Patient reports that around 6 PM Thursday night he developed a left-sided chest discomfort radiating down to his left upper quadrant. He reports the pain was evaluated on 08/05/2023 with associated dizziness and palpitations. He denies any prior history of such pain. Reports that his pain had persisted up until he arrived at emergency room and then gradually resolved. Reports being symptom- free at time of interview. Reports the pain is nonpleuritic. Denies lower extremity swelling or pain. Denies resting fever, chills, nausea, vomiting, abdominal pain, diarrhea. The emergency room, EKG revealed sinus tachycardia at [address]/T wave changes noted as reviewed by me with QTc 386 ms. Chest x-ray was unremarkable. Laboratory evaluation was remarkable for troponin less than 0.03, sodium 131, WBC count 7.6 hemoglobin 15.4, glucose 95, albumin 2.6. ED documentation reviewed and case discussed with ED provider. Review of systems: Pertinent positives and negatives as discussed in HPI, a complete review of systems was performed and all other systems are negative. Physical examination: Vital signs reviewed General: non toxic, no distress, appears at stated age, obese Derm: no unusual rashes/lesions, warm Head: atraumatic, normocephalic, symmetric Eyes: EOMI, no lid lag, anicteric sclera, pupils equal round reactive to light ENT: Nose and ears atraumatic Neck: No cervical lymphadenopathy, trachea midline, supple Mouth: no lip lesion, mucus membranes moist Cardiovascular: S1S2 reg, no murmur, positive dorsalis pedis pulse bilateral, no edema Lungs: CTA bilateral, no rhonchi, no rales, no accessory muscle use Abdominal: soft, nontender to palpation, no guarding Ext: muscle strength 5 out of 5 in all 4 extremities grossly, no gross muscle atrophy, no contractures, Neuro: CN II-XI grossly intact, no gross focal neuro deficits Psych: Alert, oriented, appropriate affect Assessment: Chest pain, rule out ACS Chronic conditions: Hyperlipidemia, a flutter status post ablation Imaging: The emergency room, EKG revealed sinus tachycardia at [address]/T wave changes noted as reviewed by me with QTc 386 ms. Chest x-ray was unremarkable. Data Review: Laboratory evaluation was remarkable for troponin less than 0.03, sodium 131, WBC count 7.6 hemoglobin 15.4, glucose 95, albumin 2.6. Plan: Cardiology consulted Cardiac monitoring Trend troponin Continue with aspirin Resume home medications once reconciled DVT prophylaxis: Lovenox subcu The patient is admitted with an anticipated fewer than 2 midnight stay for evaluation of chest pain CODE STATUS: Full Code Discussed with: Patient Anticipated discharge place: Home Past Medical History Past Medical History: Atrial Fibrillation, Hyperlipidemia Additional Past Medical History / Comment(s): a fib History of Any Multi-Drug Resistant Organisms: None Reported Past Surgical History: Ablation, Orthopedic Surgery Additional Past Surgical History / Comment(s): CARDIAC ABLATION. right wrist/forearm tendon repair due to injury Past Anesthesia/Blood Transfusion Reactions: No Reported Reaction Past Psychological History: Anxiety Smoking Status: Never smoker Past Alcohol Use History: Occasional Additional Past Alcohol Use History / Comment(s): QUIT SMOKING 2009-SMOKES FOR ABOUT 10 YEARS Past Drug Use History: None Reported - Past Family History Mother Additional Family Medical History / Comment(s): polio as child Father Family Medical History: Unable to Obtain Sister(s) Family Medical History: No Reported History Son(s) Family Medical History: AICD/Pacemaker Additional Family Medical History / Comment(s): WPW-pacer Daughter(s) Additional Family Medical History / Comment(s): anxiety Medications and Allergies Home Medications Medication Instructions Recorded Confirmed Type Cetirizine HCl [Zyrtec] 10 mg PO DAILY 04/17/19 05/10/24 History Escitalopram [Lexapro] 10 mg PO DAILY@1200 04/17/19 05/10/24 History Escitalopram [Lexapro] 20 mg PO DAILY@1200 04/17/19 05/10/24 History clonazePAM [KlonoPIN] 1 mg PO TID PRN 04/17/19 05/10/24 History Lovastatin [Mevacor] 40 mg PO HS 01/30/23 05/10/24 History Cholecalciferol [Vitamin D3 (125 125 mcg PO DAILY 05/06/24 05/10/24 History Mcg = 5000 Iu)] Multivitamins, Thera [Multivitamin 1 tab PO DAILY 05/06/24 05/10/24 History (formulary)] Prevagen 1 tab PO DAILY 05/06/24 05/10/24 History Tamsulosin HCl [Flomax] 0.4 mg PO HS 05/06/24 05/10/24 History levoFLOXacin 500 mg PO DAILY 05/06/24 05/10/24 History Allergies Allergy/AdvReac Type Severity Reaction Status Date / Time haloperidol [From Haldol] Allergy Swelling Verified 11/30/24 22:54 rosuvastatin AdvReac Body Verified 11/30/24 22:54 Aches/ Pain/ Weakness Physical Exam Vitals: Vital Signs Temp Pulse Resp BP Pulse Ox 12/01/24 03:10 54 L 18 131/85 98 12/01/24 00:27 98.2 F 70 19 122/79 94 L 11/30/24 22:54 98.2 F 102 H 18 107/71 97 Intake and Output 11/30/24 11/30/24 12/01/24 14:59 22:59 06:59 Other: Weight 111.13 kg Results CBC & Chem 7: 11/30/24 23:02 11/30/24 23:02 Labs: Abnormal Lab Results - Last 24 Hours (Table) 11/30/24 Range/Units 23:02 Chloride 113 H (98-107) mmol/L Carbon Dioxide 20 L (22-30) mmol/L Calcium 6.6 L (8.4-10.2) mg/dL Alkaline Phosphatase 35 L (38-126) U/L Total Protein 5.0 L (6.3-8.2) g/dL Albumin 2.6 L (3.5-5.0) g/dL
[2024-12-01] MEDS: ASPIRIN 325 MG TAB PO STA (05:08)
[2024-12-01] MEDS ORDERED: DOBUTamine DRIP for NUC MED 500 MG in DEXTROSE/WATER 1 250ML.BAG IV PRN (07:51)
[2024-12-01 08:21] VITALS: TEMP 97.5
[2024-12-01] MEDS: ASPIRIN 81 MG PO SCH (08:21)
[2024-12-01] MEDS: ENOXAPARIN 40 MG/0.4 ML SYRINGE SQ SCH (08:21)
--- NOTE | 2024-12-01 10:05 | P.CRDCN ---
History of Present Illness History of present illness: HISTORY OF PRESENT ILLNESS: This is a 68-year-old male with a past medical history significant for SVT with previous ablation, hyperlipidemia, and obesity. Patient follows in the office w alissa Denton but has not been in the office since June 2023. We have been asked to see the patient in consultation for chest pain. Patient examined at the bedside in the emergency room. Patient states he was watching TV yesterday after he ate dinner when he began to have chest discomfort. He states he was having a pressure type sensation on the left side of his chest. He denied any radiation of the pain. He denies any palpitations. He states that he got up to use the bathroom and did remember feeling lightheaded and had a headache. He denies any syncopal episodes. He states this is the first time having chest discomfort similar to this. He states when he got to the hospital his pain went away. He denies having any further episodes of chest pain or pressure since coming to the hospital. He denies any shortness of breath. Patient states that he has a bad back and has not been very active recently. Bedside telemetry reveals sinus mechanism. DIAGNOSTICS: - EKG reveals sinus mechanism with no signs of acute ischemia. - Chest xray negative for acute process. - Laboratory data: WBC 7.6. Hemoglobin 14.4. Platelet count 223. Sodium 139. Potassium 3.5. BUN 13. Creatinine 0.87. Magnesium 1.6. Troponin negative x 3. proBNP 82. - Current home cardiac medications include lovastatin 40 mg at night. - Most recent echocardiogram obtained in September 2024 reveals ejection fraction 50 to 55% with trace to mild pulmonic regurgitation. - Cardiac catheterization history: Patient denies REVIEW OF SYSTEMS: At the time of my exam: CONSTITUTIONAL: Denies fever or chills. HEENT: Denies blurred vision, vision changes, or eye pain. Denies hemoptysis CARDIOVASCULAR: Denies chest pain. Denies orthopnea. Denies PND. Denies palpitations RESPIRATORY: Denies shortness of breath. GASTROINTESTINAL: Denies abdominal pain. Denies nausea or vomiting. HEMATOLOGIC: Denies bleeding disorders. GENITOURINARY: Denies any blood in urine. SKIN: Denies pruitis. Denies rash. PHYSICAL EXAM: VITAL SIGNS: Reviewed. GENERAL: Well-developed in no acute distress. HEENT: Head is normocephalic. Pupils are equal, round. Sclerae anicteric. Mucous membranes of the mouth are moist. Neck supple. No JVD or thyromegaly LUNGS: Respirations even and unlabored. Lungs essentially clear to auscultation bilaterally. HEART: Regular rate and rhythm. S1 and S2 heard. ABDOMEN: Soft. Nondistended. Nontender. EXTREMITIES: Normal range of motion. No clubbing or cyanosis. Peripheral pulses intact. No lower extremity edema NEUROLOGIC: Awake and alert. Oriented x 3. ASSESSMENT: Chest pain, troponin negative x 3 History of SVT with previous ablation Sick sinus syndrome with previous intolerance to beta-blockers Hyperlipidemia Obesity: BMI 36.2 PLAN: An acute coronary but has been ruled out Resume home cardiac medications Obtain 2D echo to assess cardiac structure and function Patient to undergo dobutamine stress echo today If negative, he may be discharged home from a cardiac standpoint Nurse practitioner note has been reviewed by physician. Signing provider agrees with the documented findings, assessment, and plan of care documented by CABLE ENGINEER as a scribe. Past Medical History Past Medical History: Atrial Fibrillation, Hyperlipidemia Additional Past Medical History / Comment(s): a fib History of Any Multi-Drug Resistant Organisms: None Reported Past Surgical History: Ablation, Orthopedic Surgery Additional Past Surgical History / Comment(s): CARDIAC ABLATION. right wrist/forearm tendon repair due to injury Past Anesthesia/Blood Transfusion Reactions: No Reported Reaction Past Psychological History: Anxiety Smoking Status: Never smoker Past Alcohol Use History: Occasional Additional Past Alcohol Use History / Comment(s): QUIT SMOKING 2009-SMOKES FOR ABOUT 10 YEARS Past Drug Use History: None Reported - Past Family History Mother Additional Family Medical History / Comment(s): polio as child Father Family Medical History: Unable to Obtain Sister(s) Family Medical History: No Reported History Son(s) Family Medical History: AICD/Pacemaker Additional Family Medical History / Comment(s): WPW-pacer Daughter(s) Additional Family Medical History / Comment(s): anxiety Medications and Allergies Home Medications Medication Instructions Recorded Confirmed Type Escitalopram [Lexapro] 10 mg PO DAILY@1200 04/17/19 12/01/24 History Escitalopram [Lexapro] 20 mg PO DAILY@1200 04/17/19 12/01/24 History clonazePAM [KlonoPIN] 1 mg PO TID 04/17/19 12/01/24 History Lovastatin [Mevacor] 40 mg PO HS 01/30/23 12/01/24 History Cholecalciferol [Vitamin D3 (125 125 mcg PO DAILY@1200 05/06/24 12/01/24 History Mcg = 5000 Iu)] Tamsulosin HCl [Flomax] 0.4 mg PO HS 05/06/24 12/01/24 History Meloxicam [Mobic] 15 mg PO DAILY@1300 12/01/24 12/01/24 History Allergies Allergy/AdvReac Type Severity Reaction Status Date / Time haloperidol [From Haldol] Allergy Swelling Verified 12/01/24 07:16 rosuvastatin AdvReac Body Verified 12/01/24 07:16 Aches/ Pain/ Weakness Physical Exam Vitals: Vital Signs Temp Pulse Resp BP Pulse Ox 12/01/24 08:18 97.5 F L 58 L 20 128/98 95 12/01/24 07:01 51 L 16 136/78 96 12/01/24 05:05 57 L 18 131/85 96 12/01/24 03:10 54 L 18 131/85 98 12/01/24 00:27 98.2 F 70 19 122/79 94 L 11/30/24 22:54 98.2 F 102 H 18 107/71 97 Intake and Output 11/30/24 12/01/24 12/01/24 22:59 06:59 14:59 Other: Weight 111.13 kg Results 11/30/24 23:02 11/30/24 23:02 Cardiac Enzymes 11/30/24 11/30/24 12/01/24 Range/Units 23:02 23:02 03:01 AST 28 (17-59) U/L Troponin I <0.012 0.014 (0.000-0.034) ng/mL 12/01/24 Range/Units 05:29 AST (17-59) U/L Troponin I 0.013 (0.000-0.034) ng/mL Coagulation 11/30/24 Range/Units 23:02 PT 10.7 (10.0-12.5) sec APTT 26.1 (22.0-30.0) sec CBC 11/30/24 Range/Units 23:02 WBC 7.6 (3.8-10.6) k/uL RBC 4.78 (4.30-5.90) m/uL Hgb 15.4 (13.0-17.5) gm/dL Hct 45.2 (39.0-53.0) % Plt Count 223 (150-450) k/uL Comprehensive Metabolic Panel 11/30/24 Range/Units 23:02 Sodium 139 (137-145) mmol/L Potassium 3.5 (3.5-5.1) mmol/L Chloride 113 H (98-107) mmol/L Carbon Dioxide 20 L (22-30) mmol/L BUN 13 (9-20) mg/dL Creatinine 0.87 (0.66-1.25) mg/dL Glucose 95 (74-99) mg/dL Calcium 6.6 L (8.4-10.2) mg/dL AST 28 (17-59) U/L ALT 16 (4-49) U/L Alkaline Phosphatase 35 L (38-126) U/L Total Protein 5.0 L (6.3-8.2) g/dL Albumin 2.6 L (3.5-5.0) g/dL Current Medications Generic Name Dose Route Start Last Admin Trade Name Freq PRN Reason Stop Dose Admin Aspirin 81 mg 12/01/24 09:00 12/01/24 08:21 Aspirin 81 Mg PO 81 mg DAILY KAYLA Administration Enoxaparin Sodium 40 mg 12/01/24 09:00 12/01/24 08:21 Enoxaparin 40 Mg/0.4 Ml Syringe SQ 40 mg DAILY KAYLA Administration Sodium Chloride 1,000 mls @ 75 mls/hr 12/01/24 00:45 12/01/24 01:24 Saline 0.9% IV 75 mls/hr .[id number] KAYLA Administration Dobutamine HCl/Dextrose 500 mg 250 mls @ 33.339 mls/hr 12/01/24 07:51 / IV Solution IV 12/01/24 11:51 .[id number] PRN Per Protocol Protocol 10 MCG/KG/MIN Morphine Sulfate 4 mg 12/01/24 00:45 Morphine Sulfate 4 Mg/Ml Syringe IV Q4HR PRN Severe Pain (Scale 7 to 10) Naloxone HCl 0.2 mg 12/01/24 00:45 Naloxone 0.4 Mg/Ml 1 Ml Vial IV Q2M PRN Opioid Reversal Ondansetron HCl 4 mg 12/01/24 00:45 Ondansetron 4 Mg/2 Ml Vial IVP Q8HR PRN Nausea And Vomiting Intake and Output 11/30/24 12/01/24 12/01/24 22:59 06:59 14:59 Other: Weight 111.13 kg 11/30/24 23:02 11/30/24 23:02
--- NOTE | 2024-12-01 11:32 | CA ---
Dobutamine Stress Echocardiogram Report Bao Alves Age: 68 Gender: M : 1955 Exam Date: 12/01/2024 10:36 Exam Location: [facility] Ordering Physician: Sarah Mendieta Referring Physician: [id number] Infantry Weapons Crewmember: Toney Brush Technologist: Ht (in): 69 Wt (lb): 245 Procedure CPT: Indication: CP ICD-9 Codes: Rhythm: Patient History: Chest pain, palpitations and vertigo Cardiac Medications: Medications in past 24 hours: Contrast: Definity Total Dose (mL): 2 Stress Results Protocol: Dobutamine Peak Dose (???g/kg/min): 40 Duration (min:sec): Atropine:(mg) Target HR: 128 Double Product: [id number] Resting HR: 55 Resting BP: 155 / 75 Peak HR: 133 Peak BP: 166 / 52 Max Predicted HR: 151 88 % Max Predicted HR Stress Summary: BP Response: Reason for Termination: Exceeded target heart rate (85% max predicted) Cardiac Symptoms: None ECG Analysis Resting EKG: Normal sinus rhythm, normal ECG Stress EKG: No abnormal ST/T wave changes with exercise Arrhythmia: Occasional PVCs Echo Analysis Base Echo Analysis: Normal resting echocardiogram. Low Echo Anaylsis: Normal wall thickening and motion Peak Echo Analysis: Normal wall motion augmentation with no hypokinesis or dyskinesis Recovery Echo: Normal wall motion MEASUREMENTS (Male/Female) Normal Values CONCLUSIONS 1. Normal electrocardiographic response to dobutamine infusion with rare PVCs 2.No echocardiographic evidence of myocardial ischemia. 3. Normal dobutamine stress echocardiogram with no evidence of stress induced ischemia Dr. Daphne Quiroga MD (Electronically Signed) Final Date: 01 December 2024 11:31
--- NOTE | 2024-12-01 12:29 | CA ---
Transthoracic Echo Report Name: Bao Alves Age: 68 Gender: M : 1955 Exam Date: 12/01/2024 11:07 Exam Location: [facility] Ht (in): 69 Wt (lb): 245 Ordering Physician: Sarah Mendieta Attending/Referring Phys: [id number], Gayatri Gi Tech Dafne Conde, JHOAN Procedure CPT: Indications: LV function, CP Cardiac Hx: Technical Quality: Fair Contrast 1: Definity Total Dose (mL): 2 Contrast 2: Total Dose (mL): MEASUREMENTS (Male / Female) Normal Values 2D ECHO LV Diastolic Diameter PLAX 4.5 cm 4.2 - 5.9 / 3.9 - 5.3 cm LV Systolic Diameter PLAX 2.8 cm IVS Diastolic Thickness 1.1 cm 0.6 - 1.0 / 0.6 - 0.9 cm LVPW Diastolic Thickness 1.2 cm 0.6 - 1.0 / 0.6 - 0.9 cm LV Relative Wall Thickness 0.5 RV Internal Dim ED PLAX 1.7 cm LA Volume 54.6 cm??? 18 - 58 / 22 - 52 cm??? LA Volume Index 23.0 cm???/m??? 16 - 28 cm???/m??? M-MODE Aortic Root Diameter MM 3.2 cm LA Systolic Diameter MM 4.1 cm LA Ao Ratio MM 1.3 AV Cusp Separation MM 2.2 cm DOPPLER MV Area PHT 3.5 cm??? Mitral E Point Velocity 102.5 cm/s Mitral A Point Velocity 111.0 cm/s Mitral E to A Ratio 0.9 MV Deceleration Time 219.5 ms TR Peak Velocity 280.0 cm/s TR Peak Gradient 31.4 mmHg Right Ventricular Systolic Press 34.4 mmHg FINDINGS Left Ventricle Left ventricular ejection fraction is estimated at 55-60 %. Left ventricular cavity size normal. Mildly increased left ventricular wall thickness. Normal left ventricular systolic function with no obvious regional wall motion abnormalities. Right Ventricle Normal right ventricular size and function. Right ventricular systolic pressure within normal limits. Right Atrium Normal right atrial size. Left Atrium Mildly increased left atrial area. Mitral Valve Structurally normal mitral valve. Moderate mitral regurgitation. No mitral stenosis. Aortic Valve Trileaflet aortic valve. No aortic valve stenosis or regurgitation. Tricuspid Valve Structurally normal tricuspid valve. mild tricuspid regurgitation. No tricuspid stenosis. Pulmonic Valve Structurally normal pulmonic valve. Trace pulmonic regurgitation. No pulmonic stenosis. Pericardium No pericardial or pleural effusion. Aorta Normal size aortic root and proximal ascending aorta. CONCLUSIONS 1. Normal left ventricular size and systolic function 2. Moderate mitral regurgitation Mild tricuspid regurgitation with no evidence of pulmonary hypertension Previewed by: Dr. Daphne Quiroga MD (Electronically Signed) Final Date: 01 December 2024 12:28
--- NOTE | 2024-12-01 14:43 | P.DS ---
Providers Date of admission: 12/01/24 00:47 Expected date of discharge: 12/01/24 Attending physician: Young Preciado MD Consults: 12/01/24 00:45 Consult Physician Routine Consulting Provider: Daphne Quiroga Consult Reason/Comments: arrhythmia Do you want consulting provider notified?: Yes Primary care physician: Ricky Soto [facility] Course: Chest pain, rule out ACS Chronic conditions: Hyperlipidemia, a flutter status post ablation Hospital course: Patient is a 64-year-old male with PMH of a flutter status post ablation who presents to the emergency room with complaints of chest discomfort. In the emergency room, EKG revealed sinus tachycardia at [address]/T wave changes noted as reviewed by me with QTc 386 ms. Chest x-ray was unremarkable. Laboratory evaluation was remarkable for troponin less than 0.03, sodium 131, WBC count 7.6 hemoglobin 15.4, glucose 95, albumin 2.6. Patient was admitted to observation cardiology was consulted. Patient underwent echocardiogram dobutamine stress test which was negative for reversible ischemia. Echocardiogram showed preserved ejection fraction as well as moderate mitral regurgitation, otherwise unremarkable. Patient was discharged home with instructions follow-up with primary care physician. Gen: In NAD, non-toxic HEENT: normocephalic, atraumatic, hearing acuity is intant, mucous membranes moist CVS: perfusing all extremities well, no pitting edema, Respiratory: symmetric chest expansion, no accessory muscle use, GI: soft, NTTP, ND, : no suprapubic tenderness, no CVA tenderness MSK/Derm: no rashes, cyanosis Neuro: CN II-XII intact, no motor weakness, Psych: cooperative, euthymic mood, judgment and insight is intact Patient Condition at Discharge: Good Plan - Discharge Summary New Discharge Prescriptions: Continue clonazePAM [KlonoPIN] 1 mg PO TID Escitalopram [Lexapro] 10 mg PO DAILY@1200 Escitalopram [Lexapro] 20 mg PO DAILY@1200 Tamsulosin HCl [Flomax] 0.4 mg PO HS Meloxicam [Mobic] 15 mg PO DAILY@1300 Lovastatin [Mevacor] 40 mg PO HS Cholecalciferol [Vitamin D3 (125 Mcg = 5000 Iu)] 125 mcg PO DAILY@1200 Discharge Medication List Escitalopram [Lexapro] 10 mg PO DAILY@1200 04/17/19 [History] Escitalopram [Lexapro] 20 mg PO DAILY@1200 04/17/19 [History] clonazePAM [KlonoPIN] 1 mg PO TID 04/17/19 [History] Lovastatin [Mevacor] 40 mg PO HS 01/30/23 [History] Cholecalciferol [Vitamin D3 (125 Mcg = 5000 Iu)] 125 mcg PO DAILY@1200 05/06/24 [History] Tamsulosin HCl [Flomax] 0.4 mg PO HS 05/06/24 [History] Meloxicam [Mobic] 15 mg PO DAILY@1300 12/01/24 [History] Follow up Appointment(s)/Referral(s): Catie Machuca PAC [REFERRING] - 1-2 days Discharge Disposition: HOME SELF-CARE
[2024-12-01 14:58] VITALS: BP 128/88; PULSE 68; RESP 22
[2024-12-01] MEDS ORDERED: ATORVASTATIN 10 MG TAB PO SCH (21:00)
== END 2024-12-01 15:03 | disposition home or self-care (01) ==
LOC: EC 22:42 → 6NMEDSUR 12-01 00:47
PROVIDERS: ADMIT Internal Medicine; ATTEND Internal Medicine
DX: R07.89 Other chest pain (principal); I48.91 Unspecified atrial fibrillation; E78.5 Hyperlipidemia, unspecified; F41.9 Anxiety disorder, unspecified; I49.5 Sick sinus syndrome; I48.92 Unspecified atrial flutter; E66.9 Obesity, unspecified; Z68.36 Body mass index [BMI] 36.0-36.9, adult; Z79.1 Long term (current) use of non-steroidal anti-inflammatories (NSAID); Z79.899 Other long term (current) drug therapy
CPT/HCPCS: 96360; 96372; 99285; 36415; 93005; 93306; 83880; 80053; 83690; 83735; 84484 ×2; 85025; 85610; 85730; 71046; G0378; C8930; J1650; Q9957; 93351

== ENCOUNTER → 2025-01-10 | Outpatient (CLI) | payer MEDICARE, OTHER ==
--- NOTE | 2025-01-11 06:38 | CT ---
EXAMINATION TYPE: CT chest wo con DATE OF EXAM: 01/10/2025 10:09 AM COMPARISON: None. CLINICAL INDICATION: Male, 69 years old with history of R05.3 CHRONIC COUGH, chronic cough TECHNIQUE: Axial images were obtained at 5 mm thick sections. Reconstructed images are reviewed on [employer] computer in the coronal plane. Contrast used: mL of , (none if empty) Oral contrast used: (none if empty) CT DLP: 602 mGycm, Automated exposure control for dose reduction was used. FINDINGS: Portion of the thyroid visualized is normal. No suspicious lung nodules or focal infiltrates are present. No enlarged mediastinal or hilar adenopathy is evident. Multiple bilateral axillary small lymph nod es are present. The ascending aorta diameter at the level of the main pulmonary artery is 3.8 cm. The main pulmonary artery diameter at the bifurcation is 2.[address] sections are obtained through the upper abdomen. Multiple small hypodensities are scattere d throughout the liver may be related to cysts. These were present on the comparison MRI dated 024. The mesenteric inflammatory change just the edge of the field of view within the mid abdomen is present as previously. IMPRESSION: 1. No suspicious changes to account for chronic cough. [facility], , 01/11/2025 6:35 AM
== END | disposition home or self-care (01) ==
LOC: RADCTMAIN 09:43
PROVIDERS: ATTEND Family Medicine
DX: R05.3 Chronic cough (principal)
CPT/HCPCS: 71250